=== PATIENT | female | born 1945 | race Caucasian/White ===

== ENCOUNTER 2020-08-24 09:35 | Day surgery (SDC) | payer MEDICARE, SELFPAY ==
--- NOTE | 2020-08-22 08:51 | EKG12_ITS ---
Test Reason : PREOP Blood Pressure : / mmHG Vent. Rate : 068 BPM Atrial Rate : 068 BPM P-R Int : 192 ms QRS Dur : 072 ms QT Int : 382 ms P-R-T Axes : -02 -09 024 degrees QTc Int : 406 ms Normal sinus rhythm Anterolateral infarct , age undetermined Abnormal ECG Confirmed by ELAINE PATTEN, MILTON ([id number]), video editor OLIVIA BELL ([id number]) on 08/23/2020 8:46:51 AM Referred By: Ovi Varghese Confirmed By:KARLIE HENRY MD
[2020-08-22 09:57] LABS: Hematocrit 40.4 % (37-47); Hemoglobin 12.7 g/dL (12.0-15.0); Mean Corp Hgb Conc 31.4 g/dL (32-36); Mean Corpuscular Hgb 29.5 pg (27.0-32.0); Mean Corpuscular Volume 93.7 fL (81-99); Mean Platelet Vol. 11.3 fl (6.2-12.0); Platelet Count 232 K/mm3 (150-450); RBC Distribution Width CV 14.2 % (11.6-14.6); RBC Distribution Width SD 49.5 fl (35.1-43.9); Red Blood Count 4.31 M/mm3 (4.2-5.4); White Blood Count 6.8 K/mm3 (4.4-11.0)
[2020-08-22 10:15] LABS: Anion Gap 3 (5-15); BUN 22 mg/dL (7-18); BUN/Creat Ratio 22.8 RATIO (10-20); Calcium,Total 10.2 mg/dL (8.5-10.1); Chloride 105 mmol/L (98-107); Creatinine, Serum 0.96 mg/dL (0.55-1.02); EST Glomerular Filtration Rate 60 mL/min (>60); Est Glom Filt Rate - Afr Amer 73 mL/min (>60); Glucose 82 mg/dL (74-106); Potassium 3.6 mmol/L (3.5-5.1); Sodium Level 139 mmol/L (136-145)
[2020-08-24] VITALS (7 sets, daily range): BP systolic 140–177; BP diastolic 80–105; PULSE 57–65; RESP 16–18; TEMP 35.8–36.6; O2SAT 96–100; BMI 32.1
[2020-08-24] MEDS: Lactated Ringers 1,000 ML 100 ML IV (10:25)
--- NOTE | 2020-08-24 10:35 | PCM.HP.STD ---
Problem List (1) Stress incontinence Status: Acute History of Present Illness Date of Admission: 08/24/20 Chief Complaint: Stress incontinence The patient is a 74 year old female with a history of stress incontinence she had a sling placed several years ago it initially worked really well but now she has recurrent stress incontinence we did urodynamic studies that demonstrated no urge incontinence and on exam plus on history she has stress incontinence when we filled her bladder up with water understanding cough she had stress incontinence and she reports leakage with stress activity like coughing jumping activity walking. So we will plan to place a second sling to help tighten up the urethra to hopefully reduce her stress incontinence she understands that it may not be helpful and she understands no guarantees of results. Past Medical History Allergies No Known Allergies Allergy (Verified 08/24/20 09:39) Home Medications: Ambulatory Orders Medication Instructions Recorded Atorvastatin Calcium [Lipitor] 10 mg PO QHS 06/12/13 Cetirizine HCl [Zyrtec] 10 mg PO DAILY 06/12/13 Fluticasone 0.05% [Flonase Nasal 2 sprays NASAL BID 06/12/13 [place]] Lansoprazole [Prevacid] 30 mg PO DAILY 06/12/13 Montelukast [Singulair] 10 mg PO DAILY 06/12/13 Albuterol IH (ProAir) [Proair Hfa 1 - 2 puff INHALATION Q4H PRN PRN 08/19/20 (SP)Vent Pts] Budesonide/Formoterol 160/4.5 2 puff INHALATION BID 08/19/20 [Symbicort 160/4.5 Mcg Inhaler (SP)] Clonidine HCl 0.3 mg PO QHS 08/19/20 Clonidine HCl 0.5 tablet PO DAILY 08/19/20 Hydrochlorothiazide [Hctz] 25 mg PO DAILY 08/19/20 Labetalol [Trandate] 100 mg PO BID 08/19/20 Sertraline HCl [Zoloft] 100 mg PO DAILY 08/19/20 Surgical History: - - Past surgical history includes hernia repair in 2009, tubal ligation 1970, cataract 2009. 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 Smoking Status: Never smoker Tobacco Use: Non-smoker Review of Systems Constitutional: Denies: Chills, Fever, Weight Change HEENT: Denies: Head Aches, Sinus Congestion, Sinus Drainage Cardiovascular: Denies: Chest Pain, Palpitations Respiratory: Denies: Cough, Shortness of breath at rest, Sputum production Gastrointestinal: Denies: Abdominal Pain, Nausea, Vomiting Genitourinary: Denies: Dysuria Musculoskeletal: Denies: Joint Pain, Joint Tenderness Skin: Denies: Rash, Wounds Neurological: Denies: Numbness, Tingling, Focal weakness Psychiatric: Denies: Anxiety, Depression, Homicidal Ideations, Suicidal Ideations Hematologic/ Lymphatic: Denies: Easy Bruising, Easy Bleeding VTE Information - Inpt Only VTE Present on Admission: No - Physical Exam Vitals/I&O's: Vital Signs Temp Pulse Resp BP Pulse Ox 97 F L 58 L 16 174/93 H 100 08/24/20 09:58 08/24/20 09:58 08/24/20 09:58 08/24/20 09:58 08/24/20 09:58 Oxygen Delivery Method Room Air Weight: 92.9 kg Body Mass Index (BMI) 32.1 General: Alert, Oriented x3, Cooperative HEENT: Atraumatic, PERRLA, EOMI, Normocephalic Neck: Supple, No JVD, Negative Carotid Bruits Lungs: Clear to auscultation, Normal air movement Cardiovascular: Regular rate, No murmurs Abdomen: Bowel Sounds Present, Soft, Non Tender Extremities: No edema, Capillary Refill Less than 3 Seconds Skin: No rashes, No breakdown Musculoskeletal: No Tenderness to Palpation of Joints or Extremities Neurological: Cranial nerves II-XII grossly intact Psych/Mental Status: Normal Affect, Appropriate Current Medications Cefazolin Sodium 2 gm/ Sodium (Chloride) 110 mls @ 150 mls/hr IV PREOP ONE Stop: 08/24/20 12:03 Lactated Ringer's () 1,000 mls @ 100 mls/hr IV .Q10H INOCENCIA Last Admin: 08/24/20 10:25 Dose: 100 mls/hr Documented by: Assessment/Plan All Active Problems Stress incontinence (Acute) 74-year-old female plan to place a second sling for stress incontinence
--- NOTE | 2020-08-24 10:39 | DCINST_ITS ---
Discharge Diet: Light diet - advance as tolerated Discharge Activity: May not drive while taking narcotic pain medications. Instructions: Stress Urinary Incontinence: Having Midurethral Sling Surgery Allergies/Adverse Reactions: Allergies No Known Allergies Allergy (Verified 08/24/20 09:39) Medications to take at Discharge Atorvastatin Calcium [Lipitor] 10 mg PO QHS 06/12/13 Cetirizine HCl [Zyrtec] 10 mg PO DAILY 06/12/13 Fluticasone 0.05% [Flonase Nasal [place]] 2 sprays NASAL BID 06/12/13 Lansoprazole [Prevacid] 30 mg PO DAILY 06/12/13 Montelukast [Singulair] 10 mg PO DAILY 06/12/13 Albuterol IH (ProAir) [Proair Hfa (SP)Vent Pts] 1 - 2 puff INHALATION Q4H PRN PRN 08/19/20 Budesonide/Formoterol 160/4.5 [Symbicort 160/4.5 Mcg Inhaler (SP)] 2 puff INHALATION BID 08/19/20 Clonidine HCl 0.3 mg PO QHS 08/19/20 Clonidine HCl 0.5 tablet PO DAILY 08/19/20 Hydrochlorothiazide [Hctz] 25 mg PO DAILY 08/19/20 Labetalol [Trandate] 100 mg PO BID 08/19/20 Sertraline HCl [Zoloft] 100 mg PO DAILY 08/19/20 Orders to be completed after discharge: 12 Lead EKG [CVS] Time Frame: 08/22/20, Facility: [facility], Location: Cardiovascular Services Primary Care Physician: Care Physician,No Primary [Primary Care Provider] - Test Results: Test results from this visit will be discussed in further detail at your follow- up appointment, if applicable. Please Follow Up With: Ovi Varghese MD When: in 2 weeks, please call to make an appointment.
[2020-08-24] MEDS: Cefazolin 2 GM in 0.9% Normal Saline 100 ML IV (10:48)
[2020-08-24] MEDS: Lidocaine 1% /Epi 1:100 (20ml) 20 ML Vial (11:00)
--- NOTE | 2020-08-24 11:33 | OP.PCM_ITS ---
Problem List (1) Stress incontinence Status: Acute Report of Operation Date of Procedure: 08/24/20 Pre-Operative Diagnosis: Stress incontinence recurrent Post-Operative Diagnosis: Same Surgery/Procedure Performed:: Placement of a tension-free, vaginal sling Description of Surgical Findings:: Patient presents today for placement of a tension-free vaginal sling, she has a diagnosis of recurrent stress incontinence after a prior sling and has been evaluated in the preoperative setting. We discussed how the procedure will be done what to expect afterwards. She understands is possible she may need a catheter in the short-term. We discussed the risk of bleeding and also the possibility of infection with the placement of the sling. We discussed the fact that we can be using artificial mesh and that there is a small risk of infection, erosion into the urethra, vaginal area, bladder and a small risk that she may require surgery down the road to address any problems or erosions with the mesh in the long-term. She was also given no guarantees as to how well the sling would work and that her incontinence may not improved to her satisfaction. After reviewing this with the patient she agreed to proceed with the placement of the sling. Patient was taken back to the operating room, after smooth induction of general anesthesia she was placed in dorsolithotomy position. She underwent vaginal prep and was placed in dorsolithotomy position. A Freeman catheter was placed into the bladder and Inflated with 10 cc of sterile water into the balloon. I then marked out the bladder neck with a marking pen and marked out the mid urethra. The urethra was then infiltrated with lidocaine with 1:1000 epinephrine, after the injecting into the urethra then a midline incision was made in the urethra long enough to create a space for the trocar. I then used curved Metzenbaum scissors to dissect periurethrally up to the right side underneath the pubic bone, and then dissect periurethrally up to the left side underneath the pubic bone creating the tunnel for the sling. I then went up to the pubic bone and the patient was in Trendelenburg position and marked two incision site 2 cm from the midline on the left and right side. I then infiltrated the skin with lidocaine and then made a small stab incision in the right and left side exactly where the cast were above the pubic bone. Making sure that the bladder was completely empty I then guided the suprpubid desera trocar top-down on the right side first coming behind the pubic bone following it into the incision below the urethra. Once the suprapubic trocar was passed then I deflated the balloon and remove the Freeman catheter went into the bladder with a 70 degree lens and inspected the bladder and there was no perforation damage or injury to the bladder, no damage to the ureter, and no damage to the urethra. I then hooked the end of the desara sling to the suprapubic trocar and advanced it up through the tunnel and then put a snap on the end of the sling. I then went to the other side to pass the sling. The 18fr Freeman catheter was replaced into the bladder with 10 cc of water into the balloon and then drained the bladder completely and then I guided the suprapubic trocar down on the left side from top down behind the pubic bone into the incision below the urethra. I then deflated the balloon removed the Freeman catheter and performed a cystoscopy again and inspected the bladder with a 70 degree there was no injury to the bladder, the ureter, or the urethra on inspection. I then grabbed the other end of the sling and using the suprapubic trocar pulled the sling on the other side and put a snap on the sling end. I then put a snap in the middle the sling and then both ends of the slings were then pulled up and then the sling was tensioned below the urethra ensuring that the sling was flat that there was no kinking or pulling or twisting and laid nicely tension-free underneath the urethra. I did have to put the sling in with more tension than usual given that this was a recurrent case. Then both ends of the slings were cut and then the plastic sheath covering the mesh was removed deploying the sling, the excess mesh was then trimmed from the suprapubic area and the mesh ends were dunked down deep in the subcutaneous fat. The Freeman catheter was removed and we checked the bladder with a 30 and 70 degree lens making sure there is no injury to the urethra, bladder and no perforation with a mesh. The urine was nice and clear with no blood. I then closed the incision below the urethra with a running 3-0 Vicryl and thenclosed the 2 suprapubic incisions with interrupted 4- 0 Monocryl. The bladder was left empty anesthetic was reversed and she was taken back to the PACU and will undergo a voiding trial before discharge. Type of Anesthesia:: General Drains: none - Admit VTE Documentation VTE Present on Admission: No VTE Mechan Device Prophylaxis: SCD's
== END 2020-08-24 14:10 | disposition home or self-care (01) ==
LOC: SDC 09:38 → AC 09:38
PROVIDERS: Anesthesiology; Referring Provider Urology; Visit Provider Urology
PROC: 0TJB8ZZ Inspection of Bladder, Via Natural or Artificial Opening Endoscopic (ICD-10-PCS; CPT 57288; principal; 2020-08-24 11:10)
DX: N39.46 Mixed incontinence (principal); I10 Essential (primary) hypertension; E78.00 Pure hypercholesterolemia, unspecified; K21.9 Gastro-esophageal reflux disease without esophagitis; F32.9 Major depressive disorder, single episode, unspecified; Z79.51 Long term (current) use of inhaled steroids; Z79.899 Other long term (current) drug therapy; Z78.0 Asymptomatic menopausal state
CPT/HCPCS: 00860; 57288; 36415; 80048; 85027; 93005; J7120; C1771; J2405

== ENCOUNTER → 2020-08-31 12:10 | Outpatient (CLI) | payer MEDICARE, SELFPAY ==
[2020-08-24 09:58] VITALS: BMI 32.1
== END ==
PROVIDERS: Referring Provider Nurse Practitioner Adult Health; Visit Provider Nurse Practitioner Adult Health
DX: N39.3 Stress incontinence (female) (male) (principal)
CPT/HCPCS: 87086

== ENCOUNTER 2020-09-07 11:23 | Day surgery (SDC) | payer MEDICARE, SELFPAY ==
[2020-08-24 09:58] VITALS: BMI 32.1
--- NOTE | 2020-09-05 16:13 | NURSING ---
pt reports she had second pfizer vaccine on 07/26/20.
[2020-09-07] VITALS (7 sets, daily range): BP systolic 98–166; BP diastolic 82–98; PULSE 65–78; RESP 16–18; TEMP 35.7–36.9; O2SAT 93–100; BMI 31.7
[2020-09-07] MEDS: Lactated Ringers 1,000 ML 100 ML IV ×2 (12:09→13:01)
--- NOTE | 2020-09-07 14:52 | PCM.HP.STD ---
HPI - General HPI Narrative MARINE BANGURA, is a 75 F who presents for a release of a tension-free vaginal sling, last week she underwent a placement of a sling for recurrent stress incontinence she had a prior sling placement in 3 years ago but had recurrent stress incontinence the sling was placed a little bit tighter because she still had significant leakage while we are putting the sling in at the time of the procedure however unfortunately after the surgery she is not been able to urinate she is required a catheter so today were to do a releasing incision of the sling. She understands is possible because of this her leakage may not be satisfactory under control. [facility] Medical History (Updated 09/05/20 @ 16:18 by Tsering Villegas) Arthritis Asthma Chronic indwelling Freeman catheter Depression Dyspnea Edema GERD (gastroesophageal reflux disease) Hypercholesteremia Hypertension Leg cramps Non-smoker Osteoporosis Wears glasses Home Medications Zyrtec 10 mg PO DAILY 06/12/13 [History Last Taken Unknown] atorvastatin 10 mg PO QHS 06/12/13 [History Last Taken Unknown] fluticasone propionate 2 sprays NASAL BID 06/12/13 [History Last Taken 09/07/20] lansoprazole [Prevacid] 30 mg PO DAILY 06/12/13 [History Last Taken 08/24/20 05:30] montelukast 10 mg PO DAILY 06/12/13 [History Last Taken 04/05/14 06:30 10 MG] albuterol sulfate 1 - 2 puff INHALATION Q4H PRN PRN 08/19/20 [History Last Taken 09/07/20] budesonide-formoterol 2 puff INHALATION BID 08/19/20 [History Last Taken 09/07/20] clonidine HCl 0.3 mg PO QHS 08/19/20 [History Last Taken Unknown] clonidine HCl 0.5 tablet PO DAILY 08/19/20 [History Last Taken 09/07/20] hydrochlorothiazide 25 mg PO DAILY 08/19/20 [History Last Taken Unknown] labetalol 100 mg PO BID 08/19/20 [History Last Taken 09/07/20] sertraline 100 mg PO DAILY 08/19/20 [History Last Taken Unknown] ibuprofen 600 mg PO Q4H PRN PRN #20 tablet 08/24/20 [Rx Last Taken Unknown] ciprofloxacin HCl [Cipro] 500 mg PO BID #6 tab 05/05/21 [Rx Last Taken Unknown] oxycodone-acetaminophen [Endocet] 1 tab PO Q6H PRN 7 Days #10 tab 09/07/20 [Rx Last Taken Unknown] Allergy/AdvReac Type Severity Reaction Status Date / Time No Known Allergies Allergy Verified 09/05/20 15:55 Surgical History (Updated 09/05/20 @ 16:11 by Tsering Villegas) History of bilateral cataract extraction History of bilateral knee replacement History of inguinal hernia repair History of pubovaginal sling History of tubal ligation Social History Smoking Status: Never smoker Vital Signs Vital Signs Vital Signs: 09/07/20 11:51 Temperature 98.5 F Temperature Source Temporal Pulse Rate 65 Respiratory Rate 18 Respiratory Pattern Normal Blood Pressure 166/98 H Blood Pressure Mean 120 Blood Pressure Source Monitor Blood Pressure Position Semi-Fowlers Blood Pressure Location Right Arm Pulse Ox 100 Oxygen Delivery Method Room Air Physical Exam Const alert and oriented x3 General Appearance: cooperative HEENT normocephalic, head/scalp atraumatic, EAC's normal and TM's normal bilaterally Eyes PERRL and EOMs intact bilaterally Pupil: sluggish Neck no lymphadenopathy, supple and no JVD General: trachea midline Lymph Lymphatic: no lymphadenopathy noted, lymphedema and lymphadenopathy Resp normal respiratory effort, normal air movement and clear to auscultation bilaterally Cardio regular rate, regular rhythm and peripheral pulses 2+ throughout GI soft to palpation, non-tender and non-distended Extremity normal capillary refill and no clubbing, cyanosis or edema General Extremity: no tenderness to palpation of joints or extremities Skin no rashes or lesions noted General Skin Exam: turgor normal Lesions: no lesions Rashes: no rashes Neuro CN's II-XII intact bilaterally Speech: speech normal Motor Exam: strength 5/5 throughout; Negative for general weakness Psych thought process normal, cooperative and affect normal Appearance: appropriate Assessment & Plan Assessment/Plan (1) Stress incontinence: PLAN: Female with sling status post placement of sling unable to urinate after the procedure began to proceed with a release of a tension-free vaginal sling.
--- NOTE | 2020-09-07 14:54 | PCM.DC ---
Discharge Instructions Diet Discharge Diet: No restrictions Activity Discharge Activity: May not drive while taking narcotic pain medications. (for 3 days.) May shower in (days): 1 May resume sexual activity in: 6-8 weeks Dressing / Incision Call your doctor if your incision/area has: Continuous Slow Oozing, Increased Pain/ Swelling, Increased Redness and Foul Smelling Discharge Call your doctor if you observe: Fever of 101 or Higher, Numbness or Tingling, Shortness of breath, Dizziness, Calf discomfort and Uncontrolled pain Cleanse incision/area with: Keep Dressing Clean & Dry Discharge Plan Admission Primary Reason for Your Visit: Release of sling Attending Provider: Ovi Varghese Primary Care Provider: Krista Brar NP Instructions Patient Instructions: Stress Urinary Incontinence: Having Midurethral Sling Surgery Discharge Orders/Prescriptions Prescriptions: New ciprofloxacin HCl [Cipro] 500 mg tablet 500 mg PO BID Qty: 6 RF: 0 oxycodone-acetaminophen [Endocet] 5-325 mg tablet 1 tab PO Q6H PRN (Reason: pain) 7 Days Qty: 10 RF: 0 Continued atorvastatin 10 MG tablet 10 mg PO QHS RF: 0 lansoprazole [Prevacid] 30 MG capsule 30 mg PO DAILY RF: 0 montelukast 10 MG tablet 10 mg PO DAILY RF: 0 fluticasone propionate 1 SPRAY spray,suspension 2 sprays NASAL BID RF: 0 Zyrtec 10 MG capsule 10 mg PO DAILY RF: 0 clonidine HCl 0.3 MG tablet 0.5 tablet PO DAILY RF: 0 clonidine HCl 0.3 MG tablet 0.3 mg PO QHS RF: 0 sertraline 100 MG tablet 100 mg PO DAILY RF: 0 hydrochlorothiazide 25 MG tablet 25 mg PO DAILY RF: 0 labetalol 100 MG tablet 100 mg PO BID RF: 0 albuterol sulfate 1 PUFF inhaler 1 - 2 puff INHALATION Q4H PRN PRN (Reason: Sob &/Or Wheezing) RF: 0 budesonide-formoterol 1 INHALER inhaler 2 puff INHALATION BID RF: 0 ibuprofen 600 MG tablet 600 mg PO Q4H PRN PRN (Reason: Pain 1-10 Or Fever) Qty: 20 RF: 0 Referrals: Ovi Varghese MD [STAFF PHYSICIAN] - Krista Brar NP, HOSPITAL PLAN ADMINISTRATOR-C [Primary Care Provider] - Disposition Discharge Orders: Discharge Patient (Routine); Ordered 09/07/20 Ordered By: Dr. Ovi Varghese
[2020-09-07] MEDS: Cefazolin 2 GM in 0.9% Normal Saline 100 ML IV (15:00)
[2020-09-07] MEDS: Lubricating Jelly 60 GM Tube 30 GM TOPICAL (15:20)
[2020-09-07] MEDS: Bupiv/Epi 0.25% 30 ML Vial (15:20)
--- NOTE | 2020-09-07 15:34 | PCM.OPRPT ---
Problems Associated Problem List Diagnoses (1) Stress incontinence: Report of Operation Date of Procedure: 09/07/20 Pre-Operative Diagnosis: Incision of sling Post-Operative Diagnosis: Same Surgery/Procedure Performed:: Incision of sling Description of Surgical Findings:: Patient was taken back to the operating room at the smooth induction of general anesthesia she was placed in dorsolithotomy position in high lithotomy, the urethra was injected with epinephrine with lidocaine I then opened up the old incision site below the urethra about 1-1/2 cm in size dissected down I found the original sling put in 2 years ago but this was well scarred and this was left alone and I found the recent sling that was put in went across the entire sling with a hemostat and then cut the sling in the midline and then the sling retracted and released. I then closed up the incision in the midline patient is bladder was drained with a straight catheter and she is extubated taken back to PACU good condition for voiding trial. Type of Anesthesia: General Drains: none Admit VTE Documentation VTE Present on Admission: No VTE Mechan Device Prophylaxis: SCD's
--- NOTE | 2020-09-07 18:25 | SUR.PHASEII ---
VOIDED ADEQUATE AMOUNT WHICH WAS PINK/RED, PATIENT REPORTS FEELING THOUGH SHE EMPTIED HER BLADDER. POST-VOID BLADDER SCAN FOR 48 ML. ENCOURAGED INCREASED PO FLUID INTAKE. INSTRUCTED TO CALL DR COLLAZO IF UNABLE TO VOID WITHIN 6-8 HOURS. PATIENT & VERBALIZE UNDERSTANDING AND AGREEABLE. BOTH STATE DESIRE TO D/C HOME.
== END 2020-09-07 18:27 ==
LOC: SDC 11:24 → AC 11:24
PROVIDERS: PCP Nurse Practitioner Family; Referring Provider Urology; Visit Provider Urology
PROC: (CPT 57287; principal; 2020-09-07 13:15)
DX: N39.490 Overflow incontinence (principal); N39.46 Mixed incontinence; R35.0 Frequency of micturition; R35.1 Nocturia; I10 Essential (primary) hypertension; E78.00 Pure hypercholesterolemia, unspecified; M81.0 Age-related osteoporosis without current pathological fracture; J45.909 Unspecified asthma, uncomplicated; M19.90 Unspecified osteoarthritis, unspecified site; K21.9 Gastro-esophageal reflux disease without esophagitis; F32.9 Major depressive disorder, single episode, unspecified; Z79.51 Long term (current) use of inhaled steroids; Z79.899 Other long term (current) drug therapy; Z96.653 Presence of artificial knee joint, bilateral
CPT/HCPCS: 00860; 57287; J7120; J2405

== ENCOUNTER → 2023-07-08 | Outpatient (CLI) | payer MEDICARE, SELFPAY ==
--- NOTE | 2023-07-08 10:05 | RAD_ITS ---
STUDY: X-RAY - SKULL REASON FOR EXAM: Female, 77 years old. Neoplasm of uncertain behavior of skin. Lumps on the upper part of for head, near the hairline. TECHNIQUE: 5 views of the skull were obtained. COMPARISON: None. FINDINGS: There appear to be 2 faintly radiodense convexities along the superior surface of the right frontal bone, best depicted on the Archer and lateral views. Intact osseous calvarium. There is no demonstrated calvarial fracture or active periostitis. Normal visualized facial bones. Normal visualized paranasal sinuses. RAD/Skull min 4 Views IMPRESSION: 2 faintly radiodense convexities along the superior surface of the right frontal bone, nonspecific. No demonstrated calvarial fracture or active periostitis. Dedicated ultrasound or cross-sectional CT or MRI could be performed for further evaluation to distinguish between bone based or soft tissue based. Electronically Signed: Nazario Sahu MD at 11:18 EST ,
--- OUTSIDE RECORDS SUMMARY | 2023-07-08 10:29 | XMS RPT_ITS | CCD ---
Author Name Unknown Address [id number] [place] [address] Organization [facility] Care Team Providers Care Drafter [employer] Name Role Phone BOLOGNA, JULIAN A Unavailable Unavailable IMCA Unavailable Unavailable [facility]CA Unavailable Unavailable BERNHART, JIM Unavailable Unavailable [facility]CA Unavailable Unavailable [facility] Unavailable Unavailable BERNHART, JIM Unavailable Unavailable IMCA Unavailable Unavailable BOLOGNA, JULIAN A Unavailable Unavailable BERNHART, JIM Unavailable Unavailable IMCA Unavailable Unavailable BOLOGNA, JULIAN A Unavailable Unavailable IMCA Unavailable Unavailable BOLOGNA, JULIAN A Unavailable Unavailable [facility]CA Unavailable Unavailable [facility] Unavailable Unavailable BOLOGNA, JULIAN A Unavailable Unavailable BOLOGNA, JULIAN A Unavailable Unavailable IMCA Unavailable Unavailable BOLOGNA, JULIAN A Unavailable Unavailable BERNHART, JIM Unavailable Unavailable [facility]CA Unavailable Unavailable [facility]CA Unavailable Unavailable BERNHART, JIM (SANITIZER) Unavailable Unavaila ble BERNHART, JIM (SANITIZER) Unavailable Unavaila ble BOLOGNA, JULIAN A Unavailable Unavailable BOLOGNA, JULIAN A Unavailable Unavailable BOLOGNA, JULIAN A Unavailable Unavailable BOLOGNA, JULIAN A Unavailable Unavailable BOLOGNA, JULIAN A Unavailable Unavailable BOLOGNA, JULIAN A Unavailable Unavailable JI ELIZABETH Unavailable Unavailable KWANHEAVEN TERANIDI M Admitting Unavailable MARILYNN BEGUM MILLER ROD MILL Consulting Unavailab le NILDA BOWENS M Primary Care Unavailable NILDA BOWENS M Attending Unavailable PROVIDER, UNKNOWN Consulting Unavailable PROVIDER, UNKNOWN Consulting Unavailable MARILYNN BEGUM MILLER ROD MILL Consulting Unavailab le HEAVEN BOWENSIDI M Admitting Unavailable KWAN, NILDA M Primary Care Unavailable KWANHEAVEN TERANIDI M Attending Unavailable PROVIDER, UNKNOWN Consulting Unavailable PROVIDER, UNKNOWN Consulting Unavailable KWAN, NILDA M Admitting Unavailable MARILYNN BEGUM NP Consulting Unavailab NILDA Arroyo Primary Care Unavailable NILDA BOWENS Attending Unavailable PROVIDER, UNKNOWN Consulting Unavailable PROVIDER, UNKNOWN Consulting Unavailable MARILYNN REYNOSO Unavailable [phone] [employer]ED[facility], SPECTRUM Unavailable Unavailjena PAULSON Unavailable Unavailable JOSSE PATTEN, HUDSON Menjivar Unavailable SABINA PATTEN, EDUIN Unavailable SVITLANA PATTEN, NANO Person Unavailable KING EARLINE, DYLAN Tapia Unavailable JARVIS PATTEN, JEANETTE Unavailable Ovi Varghese Unavailable Unavailable LORRIE PATTEN, Naya BLEVINS Unavailable Kanika BARKER, Brenda Unavailable Unavailable CAMERON PATTEN, MELVNI Morris Unavailable LISA MCGEE Unavailable Unavailable TORI SHANE Unavailable Unavailable CLARA PATTEN, JI Muro Unavailable Arianna Camacho Unavailable Unavailable LENA RN, LINDSAY Unavailable Unavailable SOLA RN, LYN Unavailable Unavaila nora Carrillo RN, Agueda Unavailable Unavailab Yuko Sierra Unavailable Unavailable TYE LOAIZA Unavailable Unavailable Kisha Loaiza Unavailable Unavailable Ike LOAIZA MD Unavailable [facility] [employer], Daily Unavailable Unavailable ISHMAEL GALICAI Unavailable Unavailable Maile, Rosita Unavailable Unavailable AMY, BERENICE Unavailable Unavailable Kaylynn العلي Unavailable Unavailable Akil العلي Unavailable Unavailable Ginny RN, Cely Unavailable Unavaila NOLVIA Saldivar Unavailable Unavailable Brisa BARKER, Marlena Unavailable Unavailable Tana Mchugh Unavailable Unavailable Angella Partida Unavailable Unavailable JONNIE MARMOLEJO Unavailable Unavailable Unavailable Unavailable Allergies Allergy Classification Reported Allergen(s) Allergy Type Date of Onset Reaction(s) Facility (2 sources) omeprazole; Translations: [OMEPRAZOLE] Drug Allergy 06-12-2017 [facility] Repository (1 source) Omeprazole Drug Allergy [facility] Repository (2 sources) Omeprazole Drug Allergy 06-10-2023 [facility]. Medications Current Medications Medication Drug Class(es) Dates Sig (Normalized) Sig (Original) atorvastatin 10 mg oral tablet (2 sources) HMG-CoA Reductase Inhibitor Start: 12-10-2022 120 actuat budesonide 0.16 mg/actuat / formoterol fumarate 0.0045 mg/actuat metered dose inhaler (4 sources) Corticosteroid, beta2-Adrenergic Agonist Start: 10-23-2021 cloNIDine hydrochloride 0.3 mg oral tablet (2 sources) Central alpha-2 Adrenergic Agonist Start: 12-10-2022 fluticasone propionate 0.05 mg/actuat metered dose nasal spray (4 sources) Corticosteroid Start: 12-10-2022 Completed/Discontinued Medications Medication Drug Class(es) Dates Sig (Normalized) Sig (Original) [id number] 200 actuat albuterol 0.09 mg/actuat metered dose inhaler (6 sources) beta2-Adrenergic Agonist Start: 12-26-2020 End: 12-10-2022 Problems Problem Classification Problem Date Documented Da te Episodic/Chronic Abdominal hernia (6 sources) Hernia of abdominal cavity; Translations: [Other specified abdominal hernia without obstruction or gangrene] 06-10-2023 Episodic Acute bronchitis (8 sources) Acute bronchitis; Translations: [Acute bronchitis] 12-26-2012 Episodic Administrative/social admission (20 sources) Patient encounter status; Translations: [Counseling, unspecified] 10-31-2018 Episodic Allergic reactions (4 sources) Atopic dermatitis; Translations: [Atopic dermatitis, unspecified] 02-13-2013 Chronic Asthma (20 sources) Mild persistent asthma; Translations: [Mild persistent asthma, uncomplicated] 06-10-2023 Chronic Diseases of mouth; excluding dental (4 sources) Xerostomia; Translations: [Dry mouth, unspecified] 06-10-2023 Episodic Disorders of lipid metabolism (20 sources) Elevated fasting lipid profile; Translations: [Hyperlipidemia, unspecified] 06-10-2023 Chronic Esophageal disorders (20 sources) Gastroesophageal reflux disease; Translations: [Gastro-esophageal reflux disease without esophagitis] 06-10-2023 Chronic Essential hypertension (20 sources) Benign hypertension; Translations: [Essential (primary) hypertension] 06-10-2023 Chronic Fluid and electrolyte disorders (6 sources) Hypokalemia; Translations: [Hypokalemia] 10-15-2014 Episodic Genitourinary symptoms and ill-defined conditions (7 sources) Urge incontinence; Translations: [Genuine stress incontinence] Onset: 8 06-10-2023 Chronic Genitourinary symptoms and ill-defined conditions (2 sources) Stress incontinence (female) (male); Translations: [Stress incontinence (female) (male)] Onset: Hemorrhoids (6 sources) Hemorrhoids; Translations: [Unspecified hemorrhoids] 06-10-2023 Episodic Immunizations and screening for infectious disease (20 sources) Needs influenza immunization; Translations: [Encounter for immunization] 06-10-2023 Episodic Menopausal disorders (7 sources) Postmenopausal atrophic vaginitis; Translations: [Menopausal flushing] Onset: 8 01-22-2014 Chronic Mood disorders (20 sources) Acute depression; Translations: [Major depressive affective disorder, single episode, unspecified] 06-10-2023 Chronic Mycoses (10 sources) Candidiasis of skin; Translations: [Candidiasis of skin and nail] 06-10-2023 Episodic Osteoarthritis (10 sources) Primary localized osteoarthrosis of pelvic region; Translations: [Unilateral primary osteoarthritis, right hip] 06-10-2023 Chronic Other and unspecified benign neoplasm (4 sources) Tubular adenoma ; Translations: [Benign neoplasm, unspecified site] 01-11-2012 Episodic Other connective tissue disease (4 sources) Pain in buttock; Translations: [Myalgia, other site] 06-06-2018 Episodic Other connective tissue disease (2 sources) Pain of left calf; Translations: [Pain in left lower leg] 09-05-2020 Episodic Other connective tissue disease (2 sources) Right rotator cuff syndrome; Translations: [Unspecified rotator cuff tear or rupture of right shoulder, not specified as traumatic] 04-05-2017 Episodic Other connective tissue disease (2 sources) Swelling of lower limb; Translations: [Other specified soft tissue disorders] 10-15-2014 Episodic Other connective tissue disease (2 sources) Trochanteric bursitis; Translations: [Trochanteric bursitis, unspecified hip] 09-25-2013 Episodic Other diseases of bladder and urethra (1 source) Hypermobility of urethra; Translations: [Hypermobility of urethra] Onset: 8 Episodic Other ear and sense organ disorders (4 sources) Hearing loss of left ear; Translations: [Impacted cerumen, left ear] 06-10-2023 Episodic Other ear and sense organ disorders (2 sources) Bilateral earache; Translations: [Otalgia, bilateral] 08-06-2019 Episodic Other endocrine disorders (4 sources) Hyperparathyroidism; Translations: [Hyperparathyroidism, unspecified] 06-10-2023 Chronic Other endocrine disorders (6 sources) Hormone increase; Translations: [Endocrine disorder, unspecified] 06-10-2023 Episodic Other gastrointestinal disorders (2 sources) Constipation; Translations: [Constipation, unspecified] 04-06-2011 Episodic Other injuries and conditions due to external causes (2 sources) At risk for falls ; Translations: [History of falling] 08-31-2016 Episodic Other liver diseases (2 sources) Increased creatine kinase level; Translations: [Abnormal levels of other serum enzymes] 10-06-2013 Episodic Other nutritional; endocrine; and metabolic disorders (10 sources) Hypercalcemia; Translations: [Hypercalcemia] 06-10-2023 Chronic Other screening for suspected conditions (not mental disorders or infectious disease) (20 sources) Breast screening, unspecified; Translations: [Screening for diabetes mellitus] 12-26-2012 Episodic Other skin disorders (6 sources) Skin lesion; Translations: [Disorder of the skin and subcutaneous tissue, unspecified] 06-10-2023 Episodic Other skin disorders (4 sources) Seborrheic keratosis; Translations: [Other seborrheic keratosis] 06-10-2023 Episodic Other skin disorders (4 sources) Rash and other nonspecific skin eruption 03-22-2014 Episodic Other skin disorders (4 sources) Inflamed seborrheic keratosis; Translations: [Inflamed seborrheic keratosis] 01-29-2014 Episodic Other skin disorders (2 sources) Folliculitis; Translations: [Follicular disorder, unspecified] 01-26-2013 Episodic Other skin disorders (2 sources) Actinic keratosis; Translations: [Actinic keratosis] 04-21-2010 Episodic Other upper respiratory disease (16 sources) Allergic rhinitis due to pollen 06-10-2023 Chronic Other upper respiratory infections (8 sources) Sinusitis; Translations: [Chronic sinusitis, unspecified] 06-10-2023 Chronic Other upper respiratory infections (8 sources) Acute sinusitis, unspecified; Translations: [Acute upper respiratory infections of unspecified site] 12-26-2012 Episodic Pneumonia (except that caused by tuberculosis or sexually transmitted disease) (4 sources) Pneumonia; Translations: [Pneumonia, unspecified organism] 07-11-2010 Episodic Residual codes; unclassified (20 sources) Overweight; Translations: [Other specified conditions influencing health status] 06-10-2023 Episodic Retinal detachments; defects; vascular occlusion; and retinopathy (2 sources) Macular drusen ; 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, unspecified eye] 04-21-2010 Chronic Spondylosis; intervertebral disc disorders; other back problems (8 sources) Degeneration of lumbar intervertebral disc; Translations: [Other intervertebral disc degeneration, lumbar region] 06-10-2023 Chronic Spondylosis; intervertebral disc disorders; other back problems (14 sources) Sciatica; Translations: [Sciatica, right side] 06-06-2018 Episodic Sprains and strains (2 sources) Strain of muscle of lower limb; Translations: [Strain of unspecified muscles, fascia and tendons at thigh level, unspecified thigh, initial encounter] 09-25-2013 Episodic Unclassified (2 sources) Unknown / UNK(Unknown) Onset: 8 Unclassified (2 sources) 06-10-2023 Unclassified (2 sources) 06-10-2023 Unclassified (2 sources) 06-10-2023 Viral infection (4 sources) Viral disease; Translations: [Viral infection, unspecified] 12-28-2016 Episodic Results Test Name Value Interpretation Reference Range Facil ity Vital Signs Date Time Vital Sign Value Performing Clinician Faci lity 06-10-2023 09:07-0500 Body height 176.53 cm LYN CARRILLO RN [facility] [employer] [facility], ClasesD.; [facility] 06-10-2023 09:07-0500 Body mass index (BMI) [Ratio] 30.13 kg/m2 LYN CARRILLO RN [facility] [employer] [facility], Inc.; [facility] [employer] [facility], ClasesD. 06-10-2023 09:07-0500 Body surface area Derived from formula 2.11 m2 LYN CARRILLO RN [facility], ClasesD.; [facility]. 06-10-2023 09:07-0500 Body temperature 98.1 [degF] LYN CARRILLO RN [facility].; [facility]. 06-10-2023 09:07-0500 Body weight 93.9 kg LYN CARRILLO RN [facility].; [facility]. 06-10-2023 09:07-0500 Diastolic blood pressure 93 mm[Hg] LYN CARRILLO RN [facility].; [facility]. 06-10-2023 09:07-0500 Heart rate 67 /min LYN CARRILLO RN [facility], [facility].; [facility]. 06-10-2023 09:07-0500 Inhaled oxygen concentration 21 % LYN CARRILLO RN [facility].; [facility]. 06-10-2023 09:07-0500 SaO2% (BldA) [Mass fraction] 97 % LYN CARRILLO RN [facility].; [facility]. 06-10-2023 09:07-0500 Systolic blood pressure 156 mm[Hg] LYN CARRILLO RN [facility].; [facility]. 12-10-2022 09:05-0400 Body height 176.53 cm Daily [facility], [facility].; [facility]. 12-10-2022 09:05-0400 Body mass index (BMI) [Ratio] 29.26 kg/m2 Daily [facility], [facility].; [facility]. 12-10-2022 09:05-0400 Body surface area Derived from formula 2.08 m2 Daily [facility], Inc.; [facility], [facility] 12-10-2022 09:05-0400 Body weight 91.17 kg Daily [facility], [facility].; [facility], [facility] 12-10-2022 09:05-0400 Diastolic blood pressure 74 mm[Hg] Daily [facility], [facility], [facility] 12-10-2022 09:05-0400 Heart rate 72 /min Daily [facility], [facility], [facility] 12-10-2022 09:05-0400 Systolic blood pressure 113 mm[Hg] Daily [facility], [facility] 06-14-2022 08:54-0500 Body height 176.53 cm LYN CARRILLO RN [facility], [facility].; [facility], [facility] 06-14-2022 08:54-0500 Body mass index (BMI) [Ratio] 29.84 kg/m2 LYN CARRILLO RN [facility], [facility].; [facility], [facility] 06-14-2022 08:54-0500 Body surface area Derived from formula 2.1 m2 LYN CARRILLO RN [facility], [facility].; [facility], [facility]. 06-14-2022 08:54-0500 Body weight 92.99 kg LYN CARRILLO RN [facility], Inc.; [facility], [facility]. 06-14-2022 08:54-0500 Diastolic blood pressure 83 mm[Hg] LYN CARRILLO RN [facility], [facility] 06-14-2022 08:54-0500 Heart rate 69 /min LYN CARRILLO RN [facility], Inc[facility], [facility]. 06-14-2022 08:54-0500 Systolic blood pressure 130 mm[Hg] LYN CARRILLO RN [facility], [facility].; [facility], [facility] 12-21-2021 09:51-0400 Body height 176.53 cm [facility], [facility]. 12-21-2021 09:51-0400 Body mass index (BMI) [Ratio] 29.4 kg/m2 [facility], [facility].; [facility], [facility]. 12-21-2021 09:51-0400 Body surface area Derived from formula 2.09 m2 [facility], [facility].; [facility], [facility]. 12-21-2021 09:51-0400 Body weight 91.63 kg [facility] [employer] [facility], Inc.; [facility], [facility]. 12-21-2021 09:51-0400 Diastolic blood pressure 97 mm[Hg] [facility], [facility], [facility]. 12-21-2021 09:51-0400 Heart rate 61 /min [facility], Inc.; [facility], [facility]. 12-21-2021 09:51-0400 Systolic blood pressure 173 mm[Hg] [facility], [facility].; [facility], [facility] 06-22-2021 09:54-0500 Body height 176.53 cm LINDSAY PAREDES RN [facility], Inc.; [facility], Inc[facility] 06-22-2021 09:54-0500 Body mass index (BMI) [Ratio] 29.26 kg/m2 LINDSAY PAREDES RN [facility], Inc.; [facility], [facility]. 06-22-2021 09:54-0500 Body surface area Derived from formula 2.08 m2 LINDSAY GRATE LUCERO [facility], [facility].; [facility]. 06-22-2021 09:54-0500 Body weight 91.17 kg LINDSAY GRATE LUCERO [facility], [facility].; [facility], [facility]. 06-22-2021 09:54-0500 Diastolic blood pressure 75 mm[Hg] LINDSAY GRATE [facility], [facility].; [facility], [facility]. 06-22-2021 09:54-0500 Heart rate 72 /min LINDSAY GRATE [facility], [facility].; [facility]. 06-22-2021 09:54-0500 Inhaled oxygen concentration 21 % LINDSAY GRATE [facility], [facility].; [facility]. 06-22-2021 09:54-0500 SaO2% (BldA) [Mass fraction] 97 % LINDSAY GRATE [facility].; [facility], [facility]. 06-22-2021 09:54-0500 Systolic blood pressure 130 mm[Hg] LINDSAY GRATE [facility].; [facility], [facility]. 12-26-2020 09:09-0400 Body height 176.53 cm [facility], [facility].; [facility]. 12-26-2020 09:09-0400 Body mass index (BMI) [Ratio] 29.69 kg/m2 [facility], [facility].; [facility], [facility]. 12-26-2020 09:09-0400 Body surface area Derived from formula 2.09 m2 [facility], [facility].; [facility], [facility]. 12-26-2020 09:09-0400 Body weight 92.53 kg [facility], [facility].; [facility], [facility]. 12-26-2020 09:09-0400 Diastolic blood pressure 89 mm[Hg] [facility], [facility] 12-26-2020 09:09-0400 Heart rate 70 /min [facility], [facility], [facility] 12-26-2020 09:09-0400 Inhaled oxygen concentration 21 % [facility], [facility], [facility] 12-26-2020 09:09-0400 SaO2% (BldA) [Mass fraction] 94 % [facility], [facility].; [facility], [facility] 12-26-2020 09:09-0400 Systolic blood pressure 141 mm[Hg] [facility], [facility], [facility] 09-19-2020 15:12-0400 Body height 176.53 cm [facility], [facility] 09-19-2020 15:12-0400 Body mass index (BMI) [Ratio] 29.4 kg/m2 [facility], [facility].; [facility], [facility] 09-19-2020 15:12-0400 Body surface area Derived from formula 2.09 m2 [facility], [facility], [facility]. 09-19-2020 15:12-0400 Body weight 91.63 kg [facility], [facility], [facility] 09-19-2020 15:12-0400 Diastolic blood pressure 92 mm[Hg] [facility], [facility] 09-19-2020 15:12-0400 Heart rate 69 /min [facility], [facility], [facility]. 09-19-2020 15:12-0400 Systolic blood pressure 154 mm[Hg] BERENICETHUY BELTRANER [facility], Inc.; [facility], [facility]. 09-05-2020 11:39-0400 Body height 176.53 cm Kisha Menjivar [facility], Inc.; [facility], [facility] 09-05-2020 11:39-0400 Body mass index (BMI) [Ratio] 29.31 kg/m2 Kisha Menjivar [facility], Inc.; [facility], [facility]. 09-05-2020 11:39-0400 Body surface area Derived from formula 2.08 m2 Kisha Menjivar [facility], [facility].; [facility], [facility]. 09-05-2020 11:39-0400 Body weight 91.36 kg Kisha Menjivar [facility], Inc.; [facility], [facility]. 09-05-2020 11:39-0400 Diastolic blood pressure 78 mm[Hg] Kisha Menjivar [facility], [facility].; [facility], [facility]. 09-05-2020 11:39-0400 Heart rate 87 /min Kisha Menjivar [facility], Inc.; [facility], [facility]. 09-05-2020 11:39-0400 Systolic blood pressure 112 mm[Hg] Kisha Menjivar [facility], Inc.; [facility], [facility]. 06-30-2020 09:55-0500 Body height 176.53 cm LINDSAY GRATE RN [facility], Inc.; [facility], [facility] 06-30-2020 09:55-0500 Body mass index (BMI) [Ratio] 29.84 kg/m2 LINDSAY GRATE RN [facility], Inc.; [facility], [facility] 06-30-2020 09:55-0500 Body surface area Derived from formula 2.1 m2 LINDSAY GRATE RN [facility], [facility].; [facility], [facility]. 06-30-2020 09:55-0500 Body weight 92.99 kg LINDSAY GRATE [facility], [facility].; [facility], [facility]. 06-30-2020 09:55-0500 Diastolic blood pressure 87 mm[Hg] LINDSAY GRATE [facility], [facility].; [facility], [facility]. 06-30-2020 09:55-0500 Heart rate 67 /min LINDSAY GRATE [facility], Inc.; [facility], [facility]. 06-30-2020 09:55-0500 Systolic blood pressure 145 mm[Hg] LINDSAY GRATE [facility], [facility].; [facility], [facility]. 04-21-2020 10:10-0500 Body height 176.53 cm LINDSAY GRATE [facility], [facility].; [facility], [facility]. 04-21-2020 10:10-0500 Body mass index (BMI) [Ratio] 29.69 kg/m2 LINDSAY GRATE [facility], [facility].; [facility], [facility]. 04-21-2020 10:10-0500 Body surface area Derived from formula 2.09 m2 LINDSAY GRATE [facility], [facility].; [facility], [facility]. 04-21-2020 10:10-0500 Body weight 92.53 kg LINDSAY GRATE RN [facility], [facility].; [facility], [facility]. 04-21-2020 10:10-0500 Diastolic blood pressure 117 mm[Hg] LINDSAY GRATE [facility], [facility].; [facility], [facility]. 04-21-2020 10:10-0500 Heart rate 69 /min LINDSAY GRATE [facility], [facility].; [facility], [facility]. 04-21-2020 10:10-0500 Systolic blood pressure 181 mm[Hg] LINDSAY GRATE RN [facility], [facility].; [facility], [facility]. 03-24-2020 12:57-0500 Body height 176.53 cm LINDSAY GRATE [facility], [facility].; [facility], [facility]. 03-24-2020 12:57-0500 Body mass index (BMI) [Ratio] 29.69 kg/m2 LINDSAY GRATE [facility], [facility].; [facility], [facility]. 03-24-2020 12:57-0500 Body surface area Derived from formula 2.09 m2 LINDSAY GRATE [facility], [facility].; [facility], [facility]. 03-24-2020 12:57-0500 Body weight 92.53 kg LINDSAY GRATE [facility], [facility].; [facility], [facility]. 03-24-2020 12:57-0500 Diastolic blood pressure 85 mm[Hg] LINDSAY GRATE [facility], [facility].; [facility], [facility]. 03-24-2020 12:57-0500 Heart rate 97 /min LINDSAY GRATE [facility], [facility].; [facility], [facility]. 03-24-2020 12:57-0500 Systolic blood pressure 125 mm[Hg] LINDSAY GRATE [facility], [facility].; [facility], [facility]. 12-31-2019 09:23-0400 Body height 176.53 cm LINDSAY GRATE [facility], [facility].; [facility], [facility]. 12-31-2019 09:23-0400 Body mass index (BMI) [Ratio] 29.55 kg/m2 LINDSAY GRATE [facility], [facility].; [facility], [facility]. 12-31-2019 09:23-0400 Body surface area Derived from formula 2.09 m2 LINDSAY GRATE [facility], [facility].; [facility], [facility]. 12-31-2019 09:23-0400 Body weight 92.08 kg LINDSAY GRATE [facility], [facility].; [facility], Inc[facility] 12-31-2019 09:23-0400 Diastolic blood pressure 82 mm[Hg] LINDSAY GRATE RN [facility], [facility].; [facility], Inc[facility] 12-31-2019 09:23-0400 Heart rate 65 /min LINDSAY GRATE RN [facility], [facility].; [facility], [facility]. 12-31-2019 09:23-0400 Systolic blood pressure 130 mm[Hg] LINDSAY GRATE RN [facility], [facility].; [facility], [facility]. 08-06-2019 09:53-0400 Body height 176.53 cm LINDSAY GRATE LUCERO [facility], [facility].; [facility], Inc[facility] 08-06-2019 09:53-0400 Body mass index (BMI) [Ratio] 29.11 kg/m2 LINDSAY GRATE LUCERO [facility], [facility].; [facility], [facility]. 08-06-2019 09:53-0400 Body surface area Derived from formula 2.08 m2 LINDSAY GRATE RN [facility], [facility].; [facility], [facility]. 08-06-2019 09:53-0400 Body weight 90.72 kg LINDSAY GRATE RN [facility], [facility].; [facility], [facility]. 08-06-2019 09:53-0400 Diastolic blood pressure 89 mm[Hg] LINDSAY GRATE LUCERO [facility] [employer] [facility], [facility].; [facility], [facility]. 08-06-2019 09:53-0400 Heart rate 61 /min LINDSAY GRATE RN [facility], [facility].; [facility] [employer] [facility], [facility]. 08-06-2019 09:53-0400 Systolic blood pressure 136 mm[Hg] LINDSAY GRATE RN [facility] [employer] [facility], [facility].; [facility] [employer] [facility], [facility]. 07-02-2019 10:46-0500 Diastolic blood pressure 99 mm[Hg] MARILYNN LICEA Work Phone: [facility] [employer] [facility] 07-02-2019 10:46-0500 Heart rate 75 /min MARILYNN BEGUM FIELD SALES ASSOCIATE-C Work Phone: [facility] 07-02-2019 10:46-0500 Systolic blood pressure 172 mm[Hg] MARILYNN BEGUM FIELD SALES ASSOCIATE-C Work Phone: [facility] [employer] [facility].; [facility] 07-02-2019 10:09-0500 Body height 176.53 cm [facility], [facility].; [facility] [employer] [facility] 07-02-2019 10:09-0500 Body mass index (BMI) [Ratio] 28.82 kg/m2 [facility], Inc.; [facility] [employer] [facility] 07-02-2019 10:09-0500 Body surface area Derived from formula 2.07 m2 [facility], Inc.; [facility]. 07-02-2019 10:09-0500 Body weight 89.81 kg [facility] ly [facility], Inc.; [facility] [employer] [facility], Inc. 03-13-2019 13:02-0500 Body height 176.53 cm Marlena Ledezma RN [facility], Inc.; [facility] [employer] [facility], Inc[facility] 03-13-2019 13:02-0500 Body mass index (BMI) [Ratio] 29.4 kg/m2 Marlena Ledezma RN [facility] [employer] [facility], [facility].; [facility] [employer] [facility], Inc[facility] 03-13-2019 13:02-0500 Body surface area Derived from formula 2.09 m2 Marlena Ledezma RN [facility] [employer] [facility], Inc.; [facility] [employer] [facility], Inc[facility] 03-13-2019 13:02-0500 Body temperature 98.1 [degF] Marlena Ledezma RN Imer Arambula [facility], Inc.; [facility], Inc[facility] 03-13-2019 13:02-0500 Body weight 91.63 kg Marlena Ledezma RN [facility], Inc.; [facility], Inc[facility] 03-13-2019 13:02-0500 Diastolic blood pressure 91 mm[Hg] Marlena Ledezma RN [facility], Inc.; [facility], Inc[facility] 03-13-2019 13:02-0500 Heart rate 76 /min Marlena Ledezma RN [facility], Inc.; [facility], Inc[facility] 03-13-2019 13:02-0500 Inhaled oxygen concentration 21 % Marlena Ledezma RN [facility], Inc.; [facility], Inc[facility] 03-13-2019 13:02-0500 SaO2% (BldA) [Mass fraction] 95 % Marlena Ledezma RN [facility], Inc.; [facility], Inc[facility] 03-13-2019 13:02-0500 Systolic blood pressure 145 mm[Hg] Marlena Ledezma RN [facility], Inc.; [facility], Inc. 01-02-2019 09:25-0400 Body height 176.53 cm Kisha A [facility], Inc.; [facility], Inc[facility] 01-02-2019 09:25-0400 Body mass index (BMI) [Ratio] 29.11 kg/m2 Kisha Menjivar [facility], Inc.; [facility], Inc. 01-02-2019 09:25-0400 Body surface area Derived from formula 2.08 m2 Kisha A [facility], Inc.; [facility], Inc. 01-02-2019 09:25-0400 Body weight 90.72 kg Kisha A [facility], Inc.; [facility], Inc. 01-02-2019 09:25-0400 Diastolic blood pressure 84 mm[Hg] Kisha Willams [facility] [employer] [facility], Inc.; [facility] [employer] [facility], Inc. 01-02-2019 09:25-0400 Heart rate 70 /min Kisha [facility]ula [facility] ly [facility], Inc.; [facility] [employer] [facility], Inc. 01-02-2019 09:25-0400 Systolic blood pressure 128 mm[Hg] Kisha Willams [facility] [employer] [facility], Inc.; [facility] [employer] [facility], Inc[facility] 10-31-2018 09:19-0400 Diastolic blood pressure 78 mm[Hg] MARILYNN BEGUM FIELD SALES ASSOCIATE-C Work Phone: [place] [facility], Inc.; [facility] [employer] [facility], Inc[facility] 10-31-2018 09:19-0400 Systolic blood pressure 120 mm[Hg] MARILYNN EBGUM FIELD SALES ASSOCIATE-C Work Phone: [place] [facility], Inc.; [facility] [employer] [facility], Inc. 10-31-2018 08:53-0400 Body height 176.53 cm NOLVIA [facility] Center[facility], Inc.; [facility] [employer] [facility], Inc. 10-31-2018 08:53-0400 Body mass index (BMI) [Ratio] 29.77 kg/m2 NOLVIA [facility] [employer] [facility], Inc.; [facility] [employer] [facility], Inc. 10-31-2018 08:53-0400 Body surface area Derived from formula 2.1 m2 NOLVIA [facility] CenterAudience[facility], Inc.; [facility] [employer] [facility], Inc. 10-31-2018 08:53-0400 Body weight 92.76 kg NOLVIA [facility] CenterMag[facility], Inc.; [facility] [employer] [facility], Inc. 10-31-2018 08:53-0400 Diastolic blood pressure 94 mm[Hg] NOLVIA [facility] [employer] [facility], Inc.; [facility] [employer] [facility], Inc. 10-31-2018 08:53-0400 Heart rate 67 /min [facility] Fami [facility], Inc.; [facility], Inc. 10-31-2018 08:53-0400 Systolic blood pressure 150 mm[Hg] NOLVIA [facility], Inc.; [facility], Inc. 2018 09:26-0400 Body height 176.53 cm LINDSAY GRATE [facility], Inc.; [facility], Inc. 2018 09:26-0400 Body mass index (BMI) [Ratio] 29.87 kg/m2 LINDSAY GRATE [facility], Inc.; [facility], Inc. 2018 09:26-0400 Body surface area Derived from formula 2.1 m2 LINDSAY GRATE [facility], Inc.; [facility], [facility]. 2018 09:26-0400 Body weight 93.08 kg LINDSAY GRATE [facility], [facility].; [facility], Inc. 2018 09:26-0400 Diastolic blood pressure 79 mm[Hg] LINDSAY GRATE [facility], Inc.; [facility], Inc. 2018 09:26-0400 Heart rate 73 /min LINDSAY GRATE [facility], [facility].; [facility]. 2018 09:26-0400 Systolic blood pressure 114 mm[Hg] LINDSAY GRATE [facility], Inc.; [facility], Inc. 07-25-2018 10:08-0400 Body height 176.53 cm LINDSAY GRATE [facility], [facility].; [facility], Inc. 07-25-2018 10:08-0400 Body mass index (BMI) [Ratio] 31 kg/m2 LINDSAY GRATE [facility], Inc.; [facility], Inc. 07-25-2018 10:08-0400 Body surface area Derived from formula 2.13 m2 LINDSAY GRATE RN [facility], [facility].; [facility], Inc. 07-25-2018 10:08-0400 Body weight 96.62 kg LINDSAY GRATE [facility], [facility].; [facility], Inc. 07-25-2018 10:08-0400 Diastolic blood pressure 93 mm[Hg] LINDSAY GRATE [facility], Inc.; [facility], Inc. 07-25-2018 10:08-0400 Heart rate 80 /min LINDSAY GRATE [facility], [facility].; [facility], Inc. 07-25-2018 10:08-0400 Systolic blood pressure 159 mm[Hg] LINDSAY GRATE [facility], Inc.; [facility], Inc. 06-27-2018 08:53-0500 Body height 176.53 cm LINDSAY GRATE [facility], [facility].; [facility], [employer]. 06-27-2018 08:53-0500 Body mass index (BMI) [Ratio] 32.02 kg/m2 LINDSAY GRATE [facility], Inc.; [facility], Inc. 06-27-2018 08:53-0500 Body surface area Derived from formula 2.16 m2 LINDSAY GRATE [facility], Inc.; [facility], Inc. 06-27-2018 08:53-0500 Body weight 99.79 kg LINDSAY GRATE [facility], [facility].; [facility] [employer] [facility], Inc. 06-27-2018 08:53-0500 Diastolic blood pressure 74 mm[Hg] LINDSAY GRATE [facility], Inc.; [facility] [employer] [facility], Inc. 06-27-2018 08:53-0500 Heart rate 76 /min LINDSAY GRATE [facility], [facility].; [facility] [employer] [facility], [employer]. 06-27-2018 08:53-0500 Systolic blood pressure 113 mm[Hg] LINDSAY GRATE [facility], Inc.; [facility], Inc. 06-06-2018 08:55-0500 Body height 176.53 cm LINDSAY GRATE [facility], [facility].; [facility], Inc. 06-06-2018 08:55-0500 Body mass index (BMI) [Ratio] 30.49 kg/m2 LINDSAY GRATE [facility], Inc.; [facility], Inc. 06-06-2018 08:55-0500 Body surface area Derived from formula 2.12 m2 LINDSAY GRATE [facility], Inc.; [facility], Inc. 06-06-2018 08:55-0500 Body weight 95.03 kg LINDSAY GRATE [facility], Inc.; [facility], Inc. 06-06-2018 08:55-0500 Diastolic blood pressure 78 mm[Hg] LINDSAY GRATE [facility], Inc.; [facility], [employer]. 06-06-2018 08:55-0500 Heart rate 80 /min LINDSAY GRATE [facility], [facility].; [facility], [employer]. 06-06-2018 08:55-0500 Systolic blood pressure 116 mm[Hg] LINDSAY GRATE [facility], Inc.; [facility], Inc. 04-14-2018 09:12-0500 Body height 176.53 cm LINDSAY GRATE [facility], Inc.; [facility] [employer] [facility], Inc. 04-14-2018 09:12-0500 Body mass index (BMI) [Ratio] 30.68 kg/m2 LINDSAY GRATE [facility] [employer] [facility], Inc.; [facility] [employer] [facility], Inc. 04-14-2018 09:12-0500 Body surface area Derived from formula 2.12 m2 LINDSAY GRATE [facility] [place] [employer] [facility], Inc.; [facility] [employer] [facility], Inc. 04-14-2018 09:12-0500 Body weight 95.62 kg LINDSAY GRATE [facility], Inc.; [facility] [employer] [facility], Inc. 04-14-2018 09:12-0500 Diastolic blood pressure 99 mm[Hg] LINDSAY GRATE RN [facility], Inc.; [facility], Inc. 04-14-2018 09:12-0500 Heart rate 69 /min LINDSAY GRATE RN [facility], [facility].; [facility], Inc. 04-14-2018 09:12-0500 Systolic blood pressure 154 mm[Hg] LINDSAY GRATE RN [facility], Inc.; [facility], Inc. 12-27-2017 10:09-0400 Body height 176.53 cm [facility], [facility].; [facility] [employer] [facility], Inc. 12-27-2017 10:09-0400 Body mass index (BMI) [Ratio] 30.28 kg/m2 [facility], Inc[facility] 12-27-2017 10:09-0400 Body surface area Derived from formula 2.11 m2 [facility].; [facility], Inc. 12-27-2017 10:09-0400 Body weight 94.35 kg [facility], [facility].; [facility] [employer] [facility], Inc. 12-27-2017 10:09-0400 Diastolic blood pressure 79 mm[Hg] [facility] [employer] [facility], Inc. 12-27-2017 10:09-0400 Heart rate 76 /min [facility], [facility].; [facility] [employer] [facility], Inc. 12-27-2017 10:09-0400 Systolic blood pressure 116 mm[Hg] [facility] [employer] [facility], Inc.; [facility] [employer] [facility], Inc. 10-18-2017 10:40-0400 Body height 176.53 cm LINDSAY GRATE RN [facility], [facility].; [facility] [employer] [facility], Inc. 10-18-2017 10:40-0400 Body mass index (BMI) [Ratio] 30.42 kg/m2 LINDSAY GRATE LUCERO [facility] [employer] [facility], ClasesD.; [facility] [employer] [facility], Inc. 10-18-2017 10:40-0400 Body surface area Derived from formula 2.12 m2 LINDSAY GRATE LUCERO [place] [facility], Inc.; [facility], Inc. 10-18-2017 10:40-0400 Body weight 94.8 kg LINDSAY GRATE [facility]UC[facility] [employer] [facility], Inc.; [facility] [employer] [facility], Inc[facility] 10-18-2017 10:40-0400 Diastolic blood pressure 79 mm[Hg] LINDSAY GRATE LUCERO [facility] [employer] [facility], Inc.; [facility] [employer] [facility], Inc. 10-18-2017 10:40-0400 Heart rate 80 /min LINDSAY GRATE [facility], Inc.; [facility] [employer] [facility], Inc. 10-18-2017 10:40-0400 Systolic blood pressure 119 mm[Hg] LINDSAY GRATE LUCERO [place] [facility].; [facility] [employer] [facility], Inc[facility] 06-28-2017 09:31-0500 Diastolic blood pressure 88 mm[Hg] JI ELIZABETH MD Work Phone: [facility] [employer] [facility] [employer] [facility], Inc[facility] 06-28-2017 09:31-0500 Systolic blood pressure 146 mm[Hg] JI ELIZABETH MD Work Phone: [facility] [employer] [facility].; [facility] [employer], [employer] 06-28-2017 09:08-0500 Body height 176.53 cm MARILYNN ANTON-Tyson Work Phone: [place] [facility].; [facility] [employer], Inc[employer] 06-28-2017 09:08-0500 Body mass index (BMI) [Ratio] 29.96 kg/m2 MARILYNN ANTON-Tyson Work Phone: [facility].; [facility] 06-28-2017 09:08-0500 Body surface area Derived from formula 2.1 m2 MARILYNN BONILLAACRMEN FIELD SALES ASSOCIATE-C Work Phone: [facility].; [facility], Inc[employer] 06-28-2017 09:08-0500 Body temperature 98.5 [degF] MARILYNN BONILLACARMEN FIELD SALES ASSOCIATE-C Work Phone: [facility].; [facility], Inc[employer] 06-28-2017 09:08-0500 Body weight 93.35 kg MARILYNN BEGUM FIELD SALES ASSOCIATE-C Work Phone: [facility].; [facility], Inc[facility] 06-28-2017 09:08-0500 Diastolic blood pressure 93 mm[Hg] MARILYNN BONILLACARMEN FIELD SALES ASSOCIATE-C Work Phone: [facility].; [facility], Inc[facility] 06-28-2017 09:08-0500 Heart rate 74 /min MARILYNN BEGUM FIELD SALES ASSOCIATE-C Work Phone: [facility].; [facility], Inc[employer] 06-28-2017 09:08-0500 Systolic blood pressure 166 mm[Hg] MARILYNN AZEVEDOCHAD FIELD SALES ASSOCIATE-C Work Phone: [facility].; [facility], Inc[employer] 04-26-2017 13:16-0500 Diastolic blood pressure 88 mm[Hg] Kisha Loaiza [facility], Inc.; [facility], Inc. 04-26-2017 13:16-0500 Heart rate 82 /min Kisha Loaiza [facility], Inc.; [facility], Inc. 04-26-2017 13:16-0500 Systolic blood pressure 127 mm[Hg] Kisha Loaiza [facility], Inc.; [facility], Inc. 04-26-2017 12:58-0500 Body height 176.[address] [facility], Inc.; [facility], Inc. 04-26-2017 12:58-0500 Body mass index (BMI) [Ratio] 30.28 kg/m2 Kisha Loaiza [facility], Inc.; [facility], Inc. 04-26-2017 12:58-0500 Body surface area Derived from formula 2.11 m2 Kisha Menjivar [facility], Inc.; [facility], Inc. 04-26-2017 12:58-0500 Body weight 94.35 kg [facility]isha [facility], Inc.; [facility] [employer] 04-26-2017 12:58-0500 Diastolic blood pressure 87 mm[Hg] Kisha Menjivar [facility], [facility].; [facility] 04-26-2017 12:58-0500 Heart rate 77 /min [facility] 04-26-2017 12:58-0500 Systolic blood pressure 146 mm[Hg] Kisha Menjivar [facility], Inc.; [facility] 04-05-2017 11:39-0500 Body height 176.53 cm Brenda Boudreaux RN [facility], Inc.; [facility] [employer] 04-05-2017 11:39-0500 Body mass index (BMI) [Ratio] 30.13 kg/m2 Brenda Boudreaux RN [facility], Inc.; [facility] [employer] 04-05-2017 11:39-0500 Body surface area Derived from formula 2.11 m2 Brenda Boudreaux RN [facility], Inc.; [facility] [employer] 04-05-2017 11:39-0500 Body temperature 99.2 [degF] Brenda Boudreaux RN Imer [facility], Inc.; [facility] [employer] 04-05-2017 11:39-0500 Body weight 93.9 kg Brenda Boudreaux RN Imer Arambula [facility], Inc.; [facility] 04-05-2017 11:39-0500 Diastolic blood pressure 88 mm[Hg] Brenda Boudreaux RN [facility], Inc.; [facility] 04-05-2017 11:39-0500 Heart rate 70 /min Brenda Boudreaux RN Imer Arambula [facility], Inc.; [facility] [employer] 04-05-2017 11:39-0500 Systolic blood pressure 144 mm[Hg] Brenda Boudreaux RN [facility], Inc.; [facility] [employer] 12-28-2016 09:36-0400 Body height 176.53 cm Kishalavon Loaiza [facility], Inc.; [facility] [employer] 12-28-2016 09:36-0400 Body mass index (BMI) [Ratio] 29.55 kg/m2 Kisha Menjivar [facility], Inc.; [facility] 12-28-2016 09:36-0400 Body surface area Derived from formula 2.09 m2 Kisha A [facility], Inc.; [facility] [employer] 12-28-2016 09:36-0400 Body weight 92.08 kg Kishalavon [facility], Inc.; [facility] [employer] [facility], Inc[facility] 12-28-2016 09:36-0400 Diastolic blood pressure 84 mm[Hg] Kisha A [facility], Inc.; [facility] 12-28-2016 09:36-0400 Heart rate 66 /min Kisha A [facility], Inc.; [facility] [employer] [facility], Inc[facility] 12-28-2016 09:36-0400 Systolic blood pressure 135 mm[Hg] Kisha Menjivar Loaiza [facility], Inc.; [facility] 08-31-2016 09:52-0400 Body height 176.53 cm [facility], Inc.; [facility] 08-31-2016 09:52-0400 Body mass index (BMI) [Ratio] 28.21 kg/m2 [facility], Inc.; [facility] 08-31-2016 09:52-0400 Body surface area Derived from formula 2.05 m2 [facility], Inc.; [facility] 08-31-2016 09:52-0400 Body weight 87.91 kg [facility], Inc.; [facility] 08-31-2016 09:52-0400 Diastolic blood pressure 80 mm[Hg] [facility] [employer] [facility], Inc.; [facility] [employer] 08-31-2016 09:52-0400 Heart rate 66 /min [facility], Inc.; [facility] 08-31-2016 09:52-0400 Systolic blood pressure 117 mm[Hg] [facility], Inc.; [facility] 06-08-2016 12:16-0500 Body height 176.53 cm [facility], Inc.; [facility] [employer] [facility], Inc[employer] 06-08-2016 12:16-0500 Body mass index (BMI) [Ratio] 27.31 kg/m2 [facility] [employer] [facility], Inc.; [facility] [employer] [facility], Inc. 06-08-2016 12:16-0500 Body surface area Derived from formula 2.02 m2 [facility] [employer] [facility], Inc.; [facility] [employer] 06-08-2016 12:16-0500 Body temperature 98 [degF] NOLVIA [facility] [employer].; [facility] 06-08-2016 12:16-0500 Body weight 85.1 kg [facility], Inc.; [facility] 06-08-2016 12:16-0500 Diastolic blood pressure 89 mm[Hg] NOLVIA [facility], Inc.; [facility] 06-08-2016 12:16-0500 Heart rate 61 /min [facility], Inc.; [facility] 06-08-2016 12:16-0500 Systolic blood pressure 152 mm[Hg] NOLVIA [facility], Inc.; [facility] 03-02-2016 10:07-0400 Body height 176.53 cm [facility], Inc.; [facility] 03-02-2016 10:07-0400 Body mass index (BMI) [Ratio] 27.22 kg/m2 [facility]IA [facility], Inc.; [facility] 03-02-2016 10:07-0400 Body surface area Derived from formula 2.02 m2 NOLVIA [facility], Inc.; [facility] 03-02-2016 10:07-0400 Body weight 84.82 kg NOLVIA [facility], Inc.; [facility] 03-02-2016 10:07-0400 Diastolic blood pressure 85 mm[Hg] NOLVAI [facility], Inc.; [facility] 03-02-2016 10:07-0400 Heart rate 60 /min [facility], Inc.; [facility] 03-02-2016 10:07-0400 Systolic blood pressure 125 mm[Hg] [facility], Inc.; [facility] 10-14-2015 10:09-0400 Body height 176.53 cm [facility], Inc.; [facility] 10-14-2015 10:09-0400 Body mass index (BMI) [Ratio] 28.24 kg/m2 [facility], Inc.; [facility], Inc[facility] 10-14-2015 10:09-0400 Body surface area Derived from formula 2.05 m2 [facility], Inc.; [facility], Inc[facility] 10-14-2015 10:09-0400 Body weight 88 kg [facility], Inc.; [facility], Inc[facility] 10-14-2015 10:09-0400 Diastolic blood pressure 83 mm[Hg] [facility], Inc.; [facility], Inc[facility] 10-14-2015 10:09-0400 Heart rate 64 /min [facility], Inc.; [facility], Inc[facility] 10-14-2015 10:09-0400 Systolic blood pressure 132 mm[Hg] [facility], Inc.; [facility], Inc[facility] 06-17-2015 09:15-0500 Diastolic blood pressure 80 mm[Hg] JI ELIZABETH MD Work Phone: [facility] [employer] [facility], Inc.; [facility] [employer] [facility], Inc[facility] 06-17-2015 09:15-0500 Systolic blood pressure 110 mm[Hg] JI ELIZABETH MD Work Phone: [facility] [employer] [facility], Inc.; [facility] [employer] [facility], Inc[facility] 06-17-2015 09:02-0500 Body height 176.53 cm [facility], Inc.; [facility] [employer] [facility], Inc[facility] 06-17-2015 09:02-0500 Body mass index (BMI) [Ratio] 30.71 kg/m2 [facility], Inc.; [facility], Inc[facility] 06-17-2015 09:02-0500 Body surface area Derived from formula 2.12 m2 [facility], Inc.; [facility], Inc[facility] 06-17-2015 09:02-0500 Body weight 95.71 kg NOLVIA [facility] Fami ly [facility], Inc.; [facility], Inc[facility] 06-17-2015 09:02-0500 Diastolic blood pressure 91 mm[Hg] [facility], Inc.; [facility], Inc[facility] 06-17-2015 09:02-0500 Heart rate 76 /[facility], Inc.; [facility], Inc[facility] 06-17-2015 09:02-0500 Systolic blood pressure 137 mm[Hg] [facility], Inc.; [facility], Inc[facility] 02-18-2015 08:54-0400 Body height 172.72 cm [facility], Inc.; [facility], Inc[facility] 02-18-2015 08:54-0400 Body mass index (BMI) [Ratio] 31.09 kg/m2 NOLVIA [facility], Inc.; [facility], Inc[facility] 02-18-2015 08:54-0400 Body surface area Derived from formula 2.06 m2 [facility], Inc.; [facility], Inc[facility] 02-18-2015 08:54-0400 Body temperature 98.5 [degF] NOLVIA [facility], Inc.; [facility], [facility]. 02-18-2015 08:54-0400 Body weight 92.76 kg NOLVIA [facility] Fami ly [facility], Inc.; [facility], Inc[facility] 02-18-2015 08:54-0400 Diastolic blood pressure 90 mm[Hg] [facility], Inc.; [facility], Inc[facility] 02-18-2015 08:54-0400 Heart rate 76 /min [facility] ly [facility], Inc.; [facility], Inc[facility] 02-18-2015 08:54-0400 Systolic blood pressure 148 mm[Hg] NOLVIA [facility], Inc.; [facility], Inc[facility] 10-15-2014 08:43-0400 Body height 172.72 cm [facility], Inc.; [facility], Inc[facility] 10-15-2014 08:43-0400 Body mass index (BMI) [Ratio] 31.32 kg/m2 [facility], Inc.; [facility], Inc[facility] 10-15-2014 08:43-0400 Body surface area Derived from formula 2.07 m2 [facility], Inc.; [facility], [facility]. 10-15-2014 08:43-0400 Body weight 93.44 kg [facility], Inc.; [facility], [facility]. 10-15-2014 08:43-0400 Diastolic blood pressure 91 mm[Hg] NOLVIA [facility], Inc.; [facility], Inc[facility] 10-15-2014 08:43-0400 Heart rate 78 /min [facility] ly [facility], Inc.; [facility], [facility]. 10-15-2014 08:43-0400 Systolic blood pressure 136 mm[Hg] [facility], Inc.; [facility], Inc[facility] 06-04-2014 10:13-0500 Body height 172.72 cm Brenda Boudreaux RN [facility], Inc.; [facility], Inc[facility] 06-04-2014 10:13-0500 Body mass index (BMI) [Ratio] 30.87 kg/m2 Brenda Boudreaux RN [facility], Inc.; [facility], Inc[facility] 06-04-2014 10:13-0500 Body surface area Derived from formula 2.06 m2 Bredna Boudreaux RN [facility], Inc.; [facility], Inc[facility] 06-04-2014 10:13-0500 Body temperature 98.6 [degF] Brenda Boudreaux RN [facility], Inc.; [facility], Inc[facility] 06-04-2014 10:13-0500 Body weight 92.08 kg Brenda Boudreaux RN [facility], Inc.; [facility], Inc[facility] 06-04-2014 10:13-0500 Diastolic blood pressure 85 mm[Hg] Brenda Boudreaux RN [facility], Inc.; [facility], Inc[facility] 06-04-2014 10:13-0500 Heart rate 85 /min Brenda Bouderaux RN [facility], Inc.; [facility], Inc[facility] 06-04-2014 10:13-0500 Systolic blood pressure 131 mm[Hg] Brenda Boudreaux RN [facility], Inc.; [facility], Inc[facility] 06-04-2014 09:51-0500 Body height 172.72 cm Brenda Boudreaux RN [facility], Inc.; [facility], Inc[facility] 06-04-2014 09:51-0500 Body mass index (BMI) [Ratio] 30.87 kg/m2 Brenda Boudreaux RN [facility], Inc.; [facility], Inc[facility] 06-04-2014 09:51-0500 Body surface area Derived from formula 2.06 m2 Brenda Boudreaux RN [facility], [facility].; [facility], Inc[facility] 06-04-2014 09:51-0500 Body temperature 98.6 [degF] Brenda Boudreaux RN [facility], Inc.; [facility], Inc[facility] 06-04-2014 09:51-0500 Body weight 92.08 kg Brenda Boudreaux RN [facility], Inc.; [facility], Inc[facility] 06-04-2014 09:51-0500 Diastolic blood pressure 85 mm[Hg] Brenda Boudreaux RN [facility], Inc.; [facility], [facility]. 06-04-2014 09:51-0500 Heart rate 85 /min Brenda Boudreaux RN [facility], Inc.; [facility], Inc[facility] 06-04-2014 09:51-0500 Systolic blood pressure 131 mm[Hg] Brenda Boudreaux RN [facility], Inc.; [facility], Inc[facility] 05-03-2014 13:18-0500 Body height 172.72 cm [facility], Inc.; [facility], Inc[facility] 05-03-2014 13:18-0500 Body mass index (BMI) [Ratio] 30.71 kg/m2 [facility], [facility].; [facility], Inc[facility] 05-03-2014 13:18-0500 Body surface area Derived from formula 2.05 m2 [facility], [facility].; [facility], [facility]. 05-03-2014 13:18-0500 Body weight 91.63 kg [facility], Inc.; [facility], [facility]. 05-03-2014 13:18-0500 Diastolic blood pressure 103 mm[Hg] [facility], Inc.; [facility], Inc[facility] 05-03-2014 13:18-0500 Heart rate 97 /min [facility], Inc.; [facility], [facility]. 05-03-2014 13:18-0500 Systolic blood pressure 141 mm[Hg] [facility], Inc.; [facility], [facility]. 03-26-2014 14:00-0500 Body height 172.72 cm [facility], Inc.; [facility], Inc[facility] 03-26-2014 14:00-0500 Body mass index (BMI) [Ratio] 31.32 kg/m2 [facility], Inc.; [facility], Inc[facility] 03-26-2014 14:00-0500 Body surface area Derived from formula 2.07 m2 [facility] [employer] [facility], Inc.; [facility], Inc[facility] 03-26-2014 14:00-0500 Body weight 93.44 kg NOLVIA [facility], Inc.; [facility], Inc[facility] 03-26-2014 14:00-0500 Diastolic blood pressure 94 mm[Hg] [facility], Inc.; [facility], Inc[facility] 03-26-2014 14:00-0500 Heart rate 81 /min [facility], Inc.; [facility], Inc[facility] 03-26-2014 14:00-0500 Systolic blood pressure 135 mm[Hg] [facility] [employer] [facility], Inc.; [facility] [employer] [facility], Inc. 03-22-2014 09:49-0500 Body height 172.72 cm [facility] ly [facility], Inc.; [facility] [employer] [facility], Inc. 03-22-2014 09:49-0500 Body mass index (BMI) [Ratio] 31.17 kg/m2 [facility] [employer] [facility], Inc.; [facility], Inc[facility] 03-22-2014 09:49-0500 Body surface area Derived from formula 2.07 m2 [facility] [employer] [facility], Inc.; [facility] [employer] [facility], Inc. 03-22-2014 09:49-0500 Body weight 92.99 kg [facility] ly [facility], Inc.; [facility] [employer] [facility], Inc. 03-22-2014 09:49-0500 Diastolic blood pressure 74 mm[Hg] [facility] [employer] [facility], Inc.; [facility] [employer] [facility], Inc. 03-22-2014 09:49-0500 Heart rate 83 /min [facility], Inc.; [facility] [employer] [facility], Inc. 03-22-2014 09:49-0500 Systolic blood pressure 105 mm[Hg] [facility] [employer] [facility], Inc.; [facility], Inc[facility] 02-12-2014 13:41-0400 Body height 172.72 cm [facility], Inc.; [facility], Inc[facility] 02-12-2014 13:41-0400 Body mass index (BMI) [Ratio] 31.02 kg/m2 [facility] [employer] [facility], Inc.; [facility], Inc[facility] 02-12-2014 13:41-0400 Body surface area Derived from formula 2.06 m2 [facility] [employer] [facility], Inc.; [facility] [employer] [facility], Inc. 02-12-2014 13:41-0400 Body weight 92.53 kg [facility], Inc.; [facility] [employer] [facility], Inc. 02-12-2014 13:41-0400 Diastolic blood pressure 88 mm[Hg] [facility] [employer] [facility], Inc.; [facility] [employer] [facility], [facility]. 02-12-2014 13:41-0400 Heart rate 81 /min [facility], Inc.; [facility] [employer] [facility], [facility]. 02-12-2014 13:41-0400 Systolic blood pressure 135 mm[Hg] [facility] [employer] [facility], Inc.; [facility] [employer] [facility], Inc[facility] 01-29-2014 12:50-0400 Body height 172.72 cm [facility], Inc.; [facility] [employer] [facility], Inc. 01-29-2014 12:50-0400 Body mass index (BMI) [Ratio] 30.87 kg/m2 [facility] [employer] [facility], Inc.; [facility] [employer] [facility], Inc. 01-29-2014 12:50-0400 Body surface area Derived from formula 2.06 m2 NOLVIA [facility] [employer] [facility], Inc.; [facility] [employer] [facility], Inc. 01-29-2014 12:50-0400 Body weight 92.08 kg [facility] [employer] [facility], Inc.; [facility] [employer] [facility], Inc. 01-29-2014 12:50-0400 Diastolic blood pressure 81 mm[Hg] [facility], Inc.; [facility], [facility]. 01-29-2014 12:50-0400 Heart rate 80 /min [facility], Inc.; [facility], Inc[facility] 01-29-2014 12:50-0400 Systolic blood pressure 128 mm[Hg] NOLVIA [facility], Inc.; [facility], Inc[facility] 01-22-2014 10:17-0400 Body height 172.72 cm TYE Turcios [facility], Inc.; [facility], [facility]. 01-22-2014 10:17-0400 Body mass index (BMI) [Ratio] 30.41 kg/m2 [facility], [facility].; [facility], [facility]. 01-22-2014 10:17-0400 Body surface area Derived from formula 2.04 m2 TYE Turcios [facility], [facility].; [facility], [facility]. 01-22-2014 10:17-0400 Body weight 90.72 kg TYE Turcios [facility], Inc.; [facility], [facility]. 01-22-2014 10:17-0400 Diastolic blood pressure 88 mm[Hg] TYE Turcios [facility], Inc.; [facility], [facility]. 01-22-2014 10:17-0400 Heart rate 80 /min TYE LOAIZA [facility], Inc.; [facility], [facility]. 01-22-2014 10:17-0400 Systolic blood pressure 137 mm[Hg] TYE Turcios [facility] [employer] [facility], Inc.; [facility], [facility]. 09-25-2013 11:21-0400 Diastolic blood pressure 80 mm[Hg] JI ELIZABETH MD Work Phone: [facility] [employer] [facility] CampusDocTree [facility].; [facility] [employer] [facility], Inc[facility] 09-25-2013 11:21-0400 Systolic blood pressure 140 mm[Hg] JI ELIZABETH MD Work Phone: [facility] [employer] [facility] CampusDocTree [facility].; [facility], Inc[facility] 09-25-2013 10:51-0400 Body height 172.72 cm [facility], [facility].; [facility], Inc[facility] 09-25-2013 10:51-0400 Body mass index (BMI) [Ratio] 29.8 kg/m2 [facility], Inc.; [facility], Inc[facility] 09-25-2013 10:51-0400 Body surface area Derived from formula 2.03 m2 [facility], [facility].; [facility], [facility]. 09-25-2013 10:51-0400 Body weight 88.91 kg [facility], [facility].; [facility], [facility]. 09-25-2013 10:51-0400 Diastolic blood pressure 93 mm[Hg] [facility], [facility]. 09-25-2013 10:51-0400 Heart rate 73 /min [facility], Inc.; [facility], [facility]. 09-25-2013 10:51-0400 Systolic blood pressure 147 mm[Hg] [facility], Inc.; [facility], [facility]. 05-15-2013 11:10-0500 Diastolic blood pressure 80 mm[Hg] JI ELIZABETH MD Work Phone: [facility] [employer] [facility]gantto.; [facility], Inc[facility] 05-15-2013 11:10-0500 Systolic blood pressure 116 mm[Hg] JI ELIZABETH MD Work Phone: [facility] [employer] [facility], [employer].; [facility], Inc[facility] 05-15-2013 10:20-0500 Body height 172.72 cm TYE LOAIZA [facility].; [facility] 05-15-2013 10:20-0500 Body mass index (BMI) [Ratio] 30.18 kg/m2 STEVEChastity Turcios JOSSE Willams [facility], Inc.; [facility] Imer Santanaes [employer] [facility], Inc[facility] 05-15-2013 10:20-0500 Body surface area Derived from formula 2.04 m2 STEVEChastity Turcios JOSSE Willams [facility] [employer] [facility], [facility].; [facility] Imer Arambula [employer] [facility] 05-15-2013 10:20-0500 Body weight 90.04 kg TYE Turcios JOSSE Willams [facility] 05-15-2013 10:20-0500 Diastolic blood pressure 101 mm[Hg] STEVEChastity Turcios JOSSE Willams [facility] [employer] [facility] 05-15-2013 10:20-0500 Heart rate 71 /min STEVEChastity Turcios JOSSE Willams [facility], [facility].; [facility] [employer] [facility] 05-15-2013 10:20-0500 Systolic blood pressure 149 mm[Hg] STEVEChastity Turcios LOAIZA [facility], Inc.; [facility] [employer] [facility] 02-13-2013 10:54-0400 Body height 172.72 cm NOLVIA [facility], [facility].; [facility] [employer] [facility] 02-13-2013 10:54-0400 Body mass index (BMI) [Ratio] 29.65 kg/m2 NOLVIA [facility] [employer] [facility], [facility].; [facility] [employer] [facility] 02-13-2013 10:54-0400 Body surface area Derived from formula 2.02 m2 NOLVIA [facility] [employer] [facility], Inc.; [facility] [employer] [facility] 02-13-2013 10:54-0400 Body weight 88.45 kg NOLVIA CREWSYER Imer [facility], Inc.; [facility] [employer] [facility] 02-13-2013 10:54-0400 Diastolic blood pressure 97 mm[Hg] NOLVIA [facility] [employer] [facility], [facility].; [facility] [employer] [facility] 02-13-2013 10:54-0400 Heart rate 76 /min NOLVIA [facility], [facility].; [facility] [employer] [facility] 02-13-2013 10:54-0400 Systolic blood pressure 138 mm[Hg] [facility] 02-02-2013 09:54-0400 Body height 172.72 cm [facility] ly [facility], [facility].; [facility] 02-02-2013 09:54-0400 Body mass index (BMI) [Ratio] 29.35 kg/m2 [facility] 02-02-2013 09:54-0400 Body surface area Derived from formula 2.01 m2 [facility] [employer] [facility] 02-02-2013 09:54-0400 Body weight 87.54 kg [facility] ly [facility], [facility] 02-02-2013 09:54-0400 Diastolic blood pressure 87 mm[Hg] [facility] [employer] [facility] 02-02-2013 09:54-0400 Heart rate 70 /min [facility] 02-02-2013 09:54-0400 Systolic blood pressure 127 mm[Hg] [facility] 01-26-2013 10:42-0400 Body height 172.72 cm [facility] ly [facility], [facility] 01-26-2013 10:42-0400 Body mass index (BMI) [Ratio] 29.35 kg/m2 [facility] [employer] [facility] 01-26-2013 10:42-0400 Body surface area Derived from formula 2.01 m2 [facility] [employer] [facility] 01-26-2013 10:42-0400 [facility] 01-26-2013 10:42-0400 Diastolic blood pressure 99 mm[Hg] NOLVIA [facility], [facility].; [facility] 01-26-2013 10:42-0400 Heart rate 97 /min NOLVIA [facility], [facility] 01-26-2013 10:42-0400 Systolic blood pressure 141 mm[Hg] NOLVIA [facility], [facility] 12-26-2012 08:53-0400 Body height 172.72 cm [facility] ly [facility], [facility] 12-26-2012 08:53-0400 Body mass index (BMI) [Ratio] 29.12 kg/m2 [facility]. 12-26-2012 08:53-0400 Body surface area Derived from formula 2.01 m2 [facility], [facility].; [facility], [facility]. 12-26-2012 08:53-0400 Body weight 86.86 kg [facility] ly [facility], [facility], [facility]. 12-26-2012 08:53-0400 Diastolic blood pressure 79 mm[Hg] NOLVIA [facility] 12-26-2012 08:53-0400 Heart rate 71 /min [facility], [facility]. 12-26-2012 08:53-0400 Systolic blood pressure 117 mm[Hg] [facility] 08-22-2012 09:12-0400 Body height 172.72 cm Marlena Ledezma [facility] lavon [facility], [facility], [facility]. 08-22-2012 09:12-0400 Body mass index (BMI) [Ratio] 30.26 kg/m2 Marlena Ledezma RN [facility], [facility].; [facility], [facility]. 08-22-2012 09:12-0400 Body surface area Derived from formula 2.04 m2 Marlena Ledezma RN [facility], [facility].; [facility], [facility]. 08-22-2012 09:12-0400 Body weight 90.27 kg Marlena Ledezma RN [facility], Inc.; [facility], [facility]. 08-22-2012 09:12-0400 Diastolic blood pressure 88 mm[Hg] [facility], [facility]. 08-22-2012 09:12-0400 Heart rate 72 /min Marlena Ledezma RN [facility], [facility], [facility]. 08-22-2012 09:12-0400 Systolic blood pressure 133 mm[Hg] Marlena [facility] 05-02-2012 11:11-0500 Diastolic blood pressure 86 mm[Hg] JI ELIZABETH MD Work Phone: [facility], [facility]. 05-02-2012 11:11-0500 Systolic blood pressure 140 mm[Hg] JI ELIZABETH MD Work Phone: [facility] [employer] [facility], [facility]. 05-02-2012 10:08-0500 Body height 172.72 cm NOLVIA [facility], Inc.; [facility], [facility]. 05-02-2012 10:08-0500 Body mass index (BMI) [Ratio] 29.95 kg/m2 [facility].; [facility] [employer] [facility], [facility]. 05-02-2012 10:08-0500 Body surface area Derived from formula 2.03 m2 [facility].; [facility] 05-02-2012 10:08-0500 Body weight 89.36 kg [facility], [facility].; [facility] [employer] [facility] 05-02-2012 10:08-0500 Diastolic blood pressure 95 mm[Hg] [facility] [employer] [facility].; [facility] [employer] [facility] 05-02-2012 10:08-0500 Heart rate 69 /min [facility], [facility].; [facility] [employer] [facility] 05-02-2012 10:08-0500 Systolic blood pressure 158 mm[Hg] [facility] [employer] [facility], [facility].; [facility] [employer] [facility] 01-11-2012 08:54-0400 Body height 172.72 cm [facility].; [facility] [employer] [facility] 01-11-2012 08:54-0400 Body mass index (BMI) [Ratio] 29.95 kg/m2 [facility] [employer] [facility], ClasesD.; [facility] [employer] [facility], [facility]. 01-11-2012 08:54-0400 Body surface area Derived from formula 2.03 m2 [facility] [employer] [facility], ClasesD.; [facility] [employer] [facility], [facility] 01-11-2012 08:54-0400 Body weight 89.36 kg [facility], [facility].; [facility] [employer] [facility] 01-11-2012 08:54-0400 Diastolic blood pressure 87 mm[Hg] [facility] [employer] [facility], [facility].; [facility] [employer] [facility] 01-11-2012 08:54-0400 Heart rate 73 /min [facility], [facility].; [facility] [employer] [facility] 01-11-2012 08:54-0400 Systolic blood pressure 126 mm[Hg] [facility] [employer] [facility], [facility].; [facility] [employer] [facility] 11-23-2011 13:42-0400 Diastolic blood pressure 80 mm[Hg] JI ELIZABETH MD Work Phone: [facility], [facility] 11-23-2011 13:42-0400 Systolic blood pressure 130 mm[Hg] JI ELIZABETH MD Work Phone: [facility], [facility].; [facility] 11-23-2011 13:35-0400 Body height 172.72 cm [facility] 11-23-2011 13:35-0400 Body mass index (BMI) [Ratio] 29.95 kg/m2 [facility], [facility].; [facility], [facility]. 11-23-2011 13:35-0400 Body surface area Derived from formula 2.03 m2 [facility] [employer] [facility].; [facility], [facility]. 11-23-2011 13:35-0400 Body temperature 98.4 [degF] [facility] lavon [facility], ClasesD.; [facility], [facility]. 11-23-2011 13:35-0400 Body weight 89.36 kg [facility] ly [facility], [facility] 11-23-2011 13:35-0400 Diastolic blood pressure 91 mm[Hg] [facility] [employer] [facility]. 11-23-2011 13:35-0400 Heart rate 85 /min [facility], [facility], [facility]. 11-23-2011 13:35-0400 Systolic blood pressure 150 mm[Hg] [facility] [employer] [facility] 08-24-2011 09:30-0400 Diastolic blood pressure 82 mm[Hg] JI ELIZABETH MD Work Phone: [facility] [employer] [facility].; [facility] 08-24-2011 09:30-0400 Systolic blood pressure 143 mm[Hg] JI ELIZABETH MD Work Phone: [facility], [facility]. 08-24-2011 08:50-0400 Body height 172.72 cm [facility] 08-24-2011 08:50-0400 Body mass index (BMI) [Ratio] 30.56 kg/m2 [facility] 08-24-2011 08:50-0400 Body surface area Derived from formula 2.05 m2 [facility], [facility]. 08-24-2011 08:50-0400 Body temperature 98.5 [degF] [facility] lavon [facility], [facility]. 08-24-2011 08:50-0400 Body weight 91.17 kg [facility], [facility]. 08-24-2011 08:50-0400 Diastolic blood pressure 106 mm[Hg] [facility], [facility]. 08-24-2011 08:50-0400 Heart rate 76 /min [facility], [facility], [facility]. 08-24-2011 08:50-0400 Systolic blood pressure 150 mm[Hg] NOLVIA [facility], [facility], [facility]. 04-27-2011 09:12-0500 Body height 172.72 cm Brenda Boudreaux RN [facility], Inc.; [facility] 04-27-2011 09:12-0500 Body mass index (BMI) [Ratio] 29.95 kg/m2 Brenda Boudreaux RN [facility], [facility] 04-27-2011 09:12-0500 Body surface area Derived from formula 2.03 m2 Brenda Boudreaux RN [facility], [facility] 04-27-2011 09:12-0500 Body temperature 98.3 [degF] Brenda Boudreaux RN Imer Arambula [facility], Inc.; [facility] 04-27-2011 09:12-0500 Body weight 89.36 kg Brenda Boudreaux RN [facility] Tyesha [facility], Inc.; [facility] 04-27-2011 09:12-0500 Diastolic blood pressure 86 mm[Hg] Brenda Boudreaux RN [facility], [facility] 04-27-2011 09:12-0500 Heart rate 78 /min Brenda Buodreaux RN [facility], Inc[facility] 04-27-2011 09:12-0500 Systolic blood pressure 128 mm[Hg] Brenda Boudreaux RN [facility], [facility] 04-06-2011 09:07-0500 Body height 172.72 cm [facility] 04-06-2011 09:07-0500 Body mass index (BMI) [Ratio] 30.11 kg/m2 NOLVIA [facility], [facility] 04-06-2011 09:07-0500 Body surface area Derived from formula 2.04 m2 NOLVIA [facility], [facility] 04-06-2011 09:07-0500 Body temperature 98.6 [degF] NOLVIA [facility], [facility].; [facility] 04-06-2011 09:07-0500 Body weight 89.81 kg N[facility]IA [facility] 04-06-2011 09:07-0500 Diastolic blood pressure 89 mm[Hg] NOLVIA [facility], [facility] 04-06-2011 09:07-0500 Heart rate 77 /min NOLVIA [facility] 04-06-2011 09:07-0500 Systolic blood pressure 133 mm[Hg] NOLVIA [facility], [facility] 12-08-2010 08:54-0400 Body height 172.72 cm NOLVIA [facility] 12-08-2010 08:54-0400 Body mass index (BMI) [Ratio] 29.8 kg/m2 [facility] 12-08-2010 08:54-0400 Body surface area Derived from formula 2.03 m2 [facility], [facility].; [facility] 12-08-2010 08:54-0400 Body weight 88.91 kg NOLVIA [facility] 12-08-2010 08:54-0400 Diastolic blood pressure 83 mm[Hg] NOLVIA [facility] 12-08-2010 08:54-0400 Heart rate 92 /min NOLVIA [facility] 12-08-2010 08:54-0400 Systolic blood pressure 126 mm[Hg] NOLVIA [facility] [employer] [facility], [facility].; [facility] [employer] [facility] 08-11-2010 09:18-0400 Diastolic blood pressure 80 mm[Hg] JI ELIZABETH MD Work Phone: [facility] [employer] [facility], Inc.; [facility] [employer] [facility] 08-11-2010 09:18-0400 Systolic blood pressure 128 mm[Hg] JI ELIZABETH MD Work Phone: [facility] [employer] [facility], [facility] 08-11-2010 08:57-0400 Body height 172.72 cm [facility], [facility] 08-11-2010 08:57-0400 Body mass index (BMI) [Ratio] 30.41 kg/m2 NOLVIA [facility], [facility] 08-11-2010 08:57-0400 Body surface area Derived from formula 2.04 m2 [facility], [facility].; [facility], [facility]. 08-11-2010 08:57-0400 Body weight 90.72 kg [facility] ly [facility], [facility], [facility]. 08-11-2010 08:57-0400 Diastolic blood pressure 97 mm[Hg] [facility]. 08-11-2010 08:57-0400 Heart rate 79 /min [facility] ly [facility], [facility], [facility]. 08-11-2010 08:57-0400 Systolic blood pressure 144 mm[Hg] NOLVIA [facility], [facility].; [facility], [facility]. 07-11-2010 11:17-0500 Body height 172.72 cm Brenda Boudreaux RN [facility], Inc[facility] 07-11-2010 11:17-0500 Body mass index (BMI) [Ratio] 29.95 kg/m2 Brenda Boudreaux RN [facility], [facility].; [facility], [facility]. 07-11-2010 11:17-0500 Body surface area Derived from formula 2.03 m2 Brenda Boudreaux RN [facility], [facility].; [facility] 07-11-2010 11:17-0500 Body temperature 98 [degF] Brenda Boudreaux RN [facility], Inc.; [facility] 07-11-2010 11:17-0500 Body weight 89.36 kg Brenda Boudreaux RN [facility], Inc[facility] 07-11-2010 11:17-0500 Diastolic blood pressure 90 mm[Hg] Brenda Boudreaux RN [facility], [facility] 07-11-2010 11:17-0500 Heart rate 97 /min Brenda Boudreaux RN [facility], Inc[facility] 07-11-2010 11:17-0500 Systolic blood pressure 134 mm[Hg] Brenda Boudreaux RN [facility], [facility] 07-03-2010 10:37-0500 Body height 172.72 cm [facility], [facility], [facility]. 07-03-2010 10:37-0500 Body mass index (BMI) [Ratio] 30.18 kg/m2 [facility], [facility].; [facility] 07-03-2010 10:37-0500 Body surface area Derived from formula 2.04 m2 [facility], [facility].; [facility] 07-03-2010 10:37-0500 Body temperature 98.6 [degF] [facility], Inc[facility]. 07-03-2010 10:37-0500 Body weight 90.[address] [facility], Inc.; [facility] 07-03-2010 10:37-0500 Diastolic blood pressure 96 mm[Hg] [facility], [facility] 07-03-2010 10:37-0500 Heart rate 74 /min [facility], Inc[facility] 07-03-2010 10:37-0500 Systolic blood pressure 156 mm[Hg] [facility], Inc[facility] 04-21-2010 10:19-0500 Diastolic blood pressure 86 mm[Hg] JI ELIZABETH MD Work Phone: [facility], [facility].; [facility] 04-21-2010 10:19-0500 Systolic blood pressure 150 mm[Hg] JI ELIZABETH MD Work Phone: [facility] [employer] [facility], Inc.; [facility] [employer] [facility] 04-21-2010 09:23-0500 Body height 172.72 cm [facility], [facility].; [facility], [facility]. 04-21-2010 09:23-0500 Body mass index (BMI) [Ratio] 30.11 kg/m2 [facility] [employer] [facility], [facility].; [facility], [facility]. 04-21-2010 09:23-0500 Body surface area Derived from formula 2.04 m2 [facility] [employer] [facility].; [facility], [facility]. 04-21-2010 09:23-0500 Body weight 89.81 kg [facility], [facility].; [facility] 04-21-2010 09:23-0500 Diastolic blood pressure 93 mm[Hg] [facility] [employer] [facility], Inc[facility]. 04-21-2010 09:23-0500 Heart rate 78 /min [facility] [employer] [facility], Inc.; [facility] [employer] [facility] [facility] 04-21-2010 09:23-0500 Systolic blood pressure 138 mm[Hg] [facility] [employer] [facility] [employer] [facility] Encounters Encounter Date Encounter Type Care Provider Facility Start: 06-10-2023 End: 06-10-2023 Office outpatient visit 15 minutes MARILYNN LICEA Work Phone: [facility] [employer] [facility], [facility] Start: 04-02-2023 End: 04-02-2023 ambulatory NILDA BOWENS [facility] Start: 03-25-2023 End: 03-25-2023 ambulatory NILDA BOWENS [facility] Start: 12-10-2022 End: 12-10-2022 Office outpatient visit 15 minutes MARILYNN PETESOLACHAD FIELD SALES ASSOCIATE-C Work Phone: [facility] Start: 09-26-2022 End: 09-26-2022 ambulatory MARILYNN PETESOLACHAD [facility] Start: 06-14-2022 End: 06-14-2022 Office outpatient visit 15 minutes MARILYNN PETESOLACARLOER FIELD SALES ASSOCIATE-C [facility] Start: 02-23-2022 End: 02-23-2022 MARILYNN PETESOLATTER FIELD SALES ASSOCIATE-C [facility] Start: 12-22-2021 End: 12-22-2021 MARILYNN RICARDOTETTER FIELD SALES ASSOCIATE-C Work Phone: [facility] [employer] [facility] Start: 12-21-2021 End: 12-21-2021 Office outpatient visit 15 minutes MARILYNN PETESOLATTER FIELD SALES ASSOCIATE-C [facility] Start: 11-23-2021 End: 11-23-2021 MARILYNN PETELINDSAYTETTER FIELD SALES ASSOCIATE-C Work Phone: [facility] [employer] [facility] Start: 10-06-2021 End: 10-06-2021 MARILYNN PETELINDSAYTETTER FIELD SALES ASSOCIATE-C Work Phone: [facility] [employer] [facility] Start: 07-27-2021 End: 07-27-2021 MARILYNN PETELINDSAYTETTER FIELD SALES ASSOCIATE-C Work Phone: [facility] [employer] [facility] Start: 06-22-2021 End: 06-22-2021 Office outpatient visit 15 minutes MARILYNN AZEVEDOTTER FIELD SALES ASSOCIATE-C [facility]: [facility] Start: 12-26-2020 End: 12-26-2020 Office outpatient visit 15 minutes MARILYNN AZEVEDOTTER FIELD SALES ASSOCIATE-C [facility] Start: 11-10-2020 End: 11-10-2020 MARILYNN HOFSTETTER FIELD SALES ASSOCIATE-C [facility] Start: 10-25-2020 End: 10-25-2020 MARILYNN HOFSTETTER FIELD SALES ASSOCIATE-C [facility] Start: 10-17-2020 End: 10-17-2020 MARILYNN HOFSTETTER FIELD SALES ASSOCIATE-C [facility] Start: 10-07-2020 End: 10-07-2020 MARILYNN HOFSTETTER FIELD SALES ASSOCIATE-C [facility] Start: 10-05-2020 End: 10-05-2020 MARILYNN HOFSTETTER FIELD SALES ASSOCIATE-C [facility] Start: 09-21-2020 End: 09-21-2020 MARILYNN HOFSTETTER FIELD SALES ASSOCIATE-C [facility] Start: 09-19-2020 End: 09-19-2020 Office outpatient visit 15 minutes MARILYNN HOFSTETTER FIELD SALES ASSOCIATE-C [facility] Start: 09-05-2020 End: 09-05-2020 Office outpatient visit 15 minutes MARILYNN HOFSTETTER FIELD SALES ASSOCIATE-C [facility]: [facility] Start: 07-01-2020 End: 07-01-2020 MARILYNN HOFSTETTER FIELD SALES ASSOCIATE-C [facility] Start: 06-30-2020 End: 06-30-2020 Office outpatient visit 25 minutes MARILYNN HOFSTETTER FIELD SALES ASSOCIATE-C [facility]: [facility] Start: 04-27-2020 End: 04-27-2020 MARILYNN HOFSTETTER FIELD SALES ASSOCIATE-C [facility] Start: 04-25-2020 End: 04-26-2020 MARILYNN HOFSTETTER FIELD SALES ASSOCIATE-C [facility] Start: 04-21-2020 End: 04-21-2020 MARILYNN HOFSTETTER FIELD SALES ASSOCIATE-C [facility] Phone: [facility] Start: 04-21-2020 End: 04-21-2020 Office outpatient visit 15 minutes MARILYNN HOFSTETTER FIELD SALES ASSOCIATE-C [facility]: [facility] Start: 03-24-2020 End: 03-24-2020 Office outpatient visit 15 minutes MARILYNN HOFSTETTER FIELD SALES ASSOCIATE-C [facility]: [facility] Start: 03-16-2020 End: 03-16-2020 MARILYNN HOFSTETTER FIELD SALES ASSOCIATE-C [facility] Start: 02-01-2020 End: 02-01-2020 MARILYNN HOFSTETTER FIELD SALES ASSOCIATE-C [facility] Start: 12-31-2019 End: 12-31-2019 Office outpatient visit 15 minutes MARILYNN HOFSTETTER FIELD SALES ASSOCIATE-C [facility]: [facility] Start: 11-13-2019 End: 11-13-2019 MARILYNN HOLINDSAYTETTER FIELD SALES ASSOCIATE-C [facility] Start: 09-03-2019 End: 09-03-2019 MARILYNN HOFSTETTER FIELD SALES ASSOCIATE-C [facility] Start: 08-10-2019 End: 08-10-2019 MARILYNN HOFSTETTER FIELD SALES ASSOCIATE-C [facility] Start: 08-06-2019 End: 08-06-2019 Office outpatient visit 15 minutes MARILYNN HOFSTETTER FIELD SALES ASSOCIATE-C [facility] Phone: [facility] Start: 07-03-2019 End: 07-03-2019 MARILYNN HOFSTETTER FIELD SALES ASSOCIATE-C [facility] Start: 07-02-2019 End: 07-02-2019 Office outpatient visit 15 minutes MARILYNN HOFSTETTER FIELD SALES ASSOCIATE-C Work Phone: [facility] [employer] [facility] Start: 03-24-2019 End: 03-24-2019 MARILYNN HOLINDSAYTETTER FIELD SALES ASSOCIATE-C Work Phone: [facility] [employer] [facility] Start: 03-13-2019 End: 03-13-2019 Office outpatient visit 15 minutes MARILYNN HOFSTETTER FIELD SALES ASSOCIATE-C Work Phone: [facility] [employer] [facility] Start: 01-02-2019 End: 01-02-2019 Office outpatient visit 15 minutes MARILYNN HOFSTETTER FIELD SALES ASSOCIATE-C Work Phone: [facility] [employer] [facility] Start: 10-31-2018 End: 10-31-2018 Office outpatient visit 15 minutes MARILYNN BONILLAER FIELD SALES ASSOCIATE-C Work Phone: [facility] Start: 10-06-2018 End: 10-06-2018 MARILYNN BONILLAER FIELD SALES ASSOCIATE-C Work Phone: [facility] [employer] [facility] Start: 2018 End: 2018 Office outpatient visit 15 minutes MARILYNN BONILLAER FIELD SALES ASSOCIATE-C Work Phone: [facility] Start: 07-26-2018 End: 07-26-2018 MARILYNN HOSOLATTER FIELD SALES ASSOCIATE-C [facility] Phone: [facility] Start: 07-25-2018 End: 07-25-2018 Office outpatient visit 15 minutes MARILYNN BONILLAER FIELD SALES ASSOCIATE-C Work Phone: [facility] [employer]. Start: 06-27-2018 End: 06-27-2018 Office outpatient visit 15 minutes MARILYNN AZEVEDOTTER FIELD SALES ASSOCIATE-C Work Phone: [facility] Start: 06-25-2018 End: 06-25-2018 MARILYNN AZEVEDOTTER FIELD SALES ASSOCIATE-C Work Phone: [facility], [employer]. Start: 06-06-2018 End: 06-06-2018 Office outpatient visit 15 minutes MARILYNN AZEVEDOTTER FIELD SALES ASSOCIATE-C Work Phone: [facility] [employer] [facility] Start: 06-06-2018 End: 06-06-2018 Patient encounter status MARILYNN BONILLAER FIELD SALES ASSOCIATE-C Work Phone: [facility] [employer] [facility] [employer] [facility] Start: 04-14-2018 End: 04-14-2018 Office outpatient visit 15 minutes MARILYNN AZEVEDOTTER FIELD SALES ASSOCIATE-C Work Phone: [facility] Start: 02-18-2018 Patient encounter JIM Long acility:[facility] Start: 01-27-2018 End: 01-27-2018 MARILYNN HOFSTETTER FIELD SALES ASSOCIATE-C Work Phone: [facility] [employer] [facility] Start: 01-20-2018 End: 01-22-2018 MARILYNN HOFSTETTER FIELD SALES ASSOCIATE-C Work Phone: [facility] [employer]. Start: 12-28-2017 End: 12-28-2017 MARILYNN HOFSTETTER FIELD SALES ASSOCIATE-C Work Phone: [facility] [employer]. Start: 12-27-2017 End: 12-27-2017 Office outpatient visit 25 minutes MARILYNN HOFSTETTER FIELD SALES ASSOCIATE-C Work Phone: [facility] [employer] [facility] Start: 11-19-2017 End: 11-19-2017 Patient [facility] Start: 11-04-2017 End: 11-04-2017 MARILYNN HOFSTETTER FIELD SALES ASSOCIATE-C Work Phone: [facility] [employer] [facility] Start: 11-04-2017 End: 11-04-2017 Evaluation and management of inpatient JULIAN Menjivar [facility] Facility:[facility] Start: 11-04-2017 Patient encounter [facility] Start: 11-01-2017 End: 11-01-2017 MARILYNN HOFSTETTER FIELD SALES ASSOCIATE-C Work Phone: [facility] [employer]. Start: 10-28-2017 End: 10-28-2017 Patient encounter [facility] Start: 10-18-2017 End: 10-18-2017 Office outpatient visit 40 minutes MARILYNN HOFSTETTER FIELD SALES ASSOCIATE-C [facility] Start: 10-18-2017 End: 10-18-2017 Preoperative state MARILYNN HOFSTETTER FIELD SALES ASSOCIATE-C Work Phone: [facility] [employer] [facility] [employer]. Start: 09-03-2017 Patient encounter [facility] Start: 08-23-2017 End: 08-23-2017 Patient encounter JULIAN Menjivar [facility] Facility:[facility] Start: 06-28-2017 End: 06-28-2017 Office outpatient visit 25 minutes MARILYNN PETEFSTETTER FIELD SALES ASSOCIATE-C Work Phone: [facility] [employer] [facility] Start: 06-24-2017 Patient encounter JIM Long acility:[facility] Start: 06-12-2017 End: 06-12-2017 Patient encounter JIM CARRILLO Facility:[facility] Start: 06-01-2017 End: 06-01-2017 MARILYNN HOFSTETTER FIELD SALES ASSOCIATE-C Work Phone: [facility] [employer] [facility] Start: 04-26-2017 End: 04-26-2017 MARILYNN HOFSTETTER FIELD SALES ASSOCIATE-C Work Phone: [facility] [employer]. Start: 04-05-2017 End: 04-05-2017 Office outpatient visit 15 minutes MARILYNN PETEFSTETTER FIELD SALES ASSOCIATE-C Work Phone: [facility] [employer] [facility] Start: 03-15-2017 End: 03-15-2017 MARILYNN HOFSTETTER FIELD SALES ASSOCIATE-C Work Phone: [facility] [employer] [facility] Start: 12-28-2016 End: 12-28-2016 MARILYNN HOFSTETTER FIELD SALES ASSOCIATE-C Work Phone: [facility] [employer] [facility] Start: 12-28-2016 End: 12-28-2016 Office outpatient visit 25 minutes MARILYNN PETEFSTETTER FIELD SALES ASSOCIATE-C Work Phone: [facility] [employer]. Start: 09-03-2016 End: 09-03-2016 MARILYNN AZEVEDOTTER FIELD SALES ASSOCIATE-C Work Phone: [facility] Start: 08-31-2016 End: 08-31-2016 Office outpatient visit 25 minutes MARILYNN AZEVEDOTTER FIELD SALES ASSOCIATE-C Work Phone: [facility] Start: 06-08-2016 End: 06-08-2016 Office outpatient visit 15 minutes MARILYNN HOLINDSAYTETTER FIELD SALES ASSOCIATE-C Work Phone: [facility] Start: 04-02-2016 End: 04-02-2016 MARILYNN HOLINDSAYTETTER FIELD SALES ASSOCIATE-C [facility] Start: 03-06-2016 End: 03-06-2016 MARILYNN HOFSTETTER FIELD SALES ASSOCIATE-C Work Phone: [facility] Start: 03-02-2016 End: 03-02-2016 Office outpatient visit 25 minutes MARILYNN SILVATETTER FIELD SALES ASSOCIATE-C Work Phone: [facility] Start: 10-15-2015 End: 10-15-2015 MARILYNN HOLINDSAYTETTER FIELD SALES ASSOCIATE-C Work Phone: [facility] [employer] [facility] Start: 10-14-2015 End: 10-14-2015 Office outpatient visit 25 minutes MARILYNN AZEVEDOTTER FIELD SALES ASSOCIATE-C Work Phone: [facility] [employer] [facility], [employer]. Start: 10-04-2015 End: 10-04-2015 MARILYNN HOLINDSAYTETTER FIELD SALES ASSOCIATE-C Work Phone: [facility] [employer] [facility] Start: 08-03-2015 End: 08-03-2015 MARILYNN HOFSTETTER FIELD SALES ASSOCIATE-C Work Phone: [facility] [employer] [facility], [employer]. Start: 06-17-2015 End: 06-17-2015 Office outpatient visit 25 minutes MARILYNN BONILLAER FIELD SALES ASSOCIATE-C [facility] Start: 05-13-2015 End: 05-13-2015 MARILYNN BONILLAER FIELD SALES ASSOCIATE-C Work Phone: [facility] [employer]. Start: 04-01-2015 End: 04-01-2015 MARILYNN BONILLAER FIELD SALES ASSOCIATE-C Work Phone: [facility], [employer]. Start: 02-18-2015 End: 02-18-2015 Office outpatient visit 25 minutes MARILYNN BONILLAER FIELD SALES ASSOCIATE-C [facility] Start: 11-01-2014 End: 11-01-2014 MARILYNN AZEVEDOTTER FIELD SALES ASSOCIATE-C Work Phone: [facility] Start: 10-18-2014 End: 10-18-2014 MARILYNN AZEVEDOTTER FIELD SALES ASSOCIATE-C Work Phone: [facility] [employer] [facility] Start: 10-15-2014 End: 10-15-2014 Office outpatient visit 25 minutes MARILYNN BONILLAER FIELD SALES ASSOCIATE-C Work Phone: [facility] [employer]. Start: 07-30-2014 End: 07-30-2014 MARILYNN AZEVEDOTTER FIELD SALES ASSOCIATE-C [facility] Phone[facility] Start: 06-04-2014 End: 06-04-2014 Office outpatient visit 40 minutes MARILYNN AZEVEDOTTER FIELD SALES ASSOCIATE-C Work Phone: [facility] [employer] [facility] Start: 06-04-2014 End: 06-04-2014 Routine gynecological examination MARILYNN BONILLAER FIELD SALES ASSOCIATE-C Work Phone: [facility] [employer] [facility] [place] [employer] [facility] [employer] [facility] Start: 06-04-2014 End: 06-04-2014 MARILYNN SILVATETTER FIELD SALES ASSOCIATE-C [facility] Phone: [facility] Start: 05-03-2014 End: 05-03-2014 Office outpatient visit 15 minutes MARILYNN AZEVEDOTTER FIELD SALES ASSOCIATE-C [facility] Start: 03-30-2014 End: 03-30-2014 MARILYNN AZEVEDOTTER FIELD SALES ASSOCIATE-C [facility] Phone: [facility] Start: 03-26-2014 End: 03-26-2014 MARILYNN HOLINDSAYTETTER FIELD SALES ASSOCIATE-C [facility] Phone: [facility] Start: 03-26-2014 End: 03-26-2014 Office outpatient visit 40 minutes MARILYNN SILVATETTER FIELD SALES ASSOCIATE-C [facility]: [facility] Start: 03-26-2014 End: 03-26-2014 Repair venous blockage MARILYNN HOLINDSAYTETTER FIELD SALES ASSOCIATE-C Work Phone: [facility] [employer] [facility] [place] [employer] [facility] [employer] [facility] Start: 03-22-2014 End: 03-22-2014 Office outpatient visit 15 minutes MARILYNN AZEVEDOTTER FIELD SALES ASSOCIATE-C Work Phone: [facility] [employer] [facility] Start: 02-12-2014 End: 02-12-2014 Office outpatient visit 15 minutes MARILYNN AZEVEDOTTER FIELD SALES ASSOCIATE-C Work Phone: [facility] [employer] [facility] Start: 01-29-2014 End: 01-29-2014 MARILYNN HOLINDSAYTETTER FIELD SALES ASSOCIATE-C Work Phone: [facility] [employer] [facility] Start: 01-22-2014 End: 01-22-2014 MARILYNN HOLINDSAYTETTER FIELD SALES ASSOCIATE-C Work Phone: [place] [employer] [facility] [employer] [facility] Start: 11-27-2013 End: 11-27-2013 MARILYNN HOFSTETTER FIELD SALES ASSOCIATE-C Work Phone: [facility] [employer] Start: 11-27-2013 End: 11-27-2013 MARILYNN BEGUM FIELD SALES ASSOCIATE-C Work Phone: [facility] Start: 10-09-2013 End: 10-09-2013 MARILYNN BONILLAER FIELD SALES ASSOCIATE-C Work Phone: [facility] Start: 10-06-2013 End: 10-06-2013 MARILYNN BONILLAER FIELD SALES ASSOCIATE-C Work Phone: [facility] Start: 09-30-2013 End: 09-30-2013 MARILYNN AZEVEDOTTER FIELD SALES ASSOCIATE-C Work Phone: [facility], [employer]. Start: 09-29-2013 End: 09-29-2013 MARILYNN AZEVEDOTTER FIELD SALES ASSOCIATE-C Work Phone: [facility], [employer]. Start: 09-25-2013 End: 09-25-2013 MARILYNN AZEVEDOTTER FIELD SALES ASSOCIATE-C Work Phone: [facility] Start: 07-24-2013 End: 07-24-2013 MARILYNN AZEVEDOTTER FIELD SALES ASSOCIATE-C Work Phone: [facility] [employer] Start: 05-18-2013 End: 05-18-2013 MARILYNN AZEVEDOTTER FIELD SALES ASSOCIATE-C Work Phone: [facility] [employer]. Start: 05-15-2013 End: 05-15-2013 Routine gynecological examination MARILYNN BONILLAER FIELD SALES ASSOCIATE-C Work Phone: [facility] [employer]. Start: 05-15-2013 End: 05-15-2013 MARILYNN AZEVEDOTTER FIELD SALES ASSOCIATE-C Work Phone: [facility] [employer]. Start: 03-30-2013 End: 03-30-2013 MARILYNN HOLINDSAYTETTER FIELD SALES ASSOCIATE-C Work Phone: [facility] Start: 03-30-2013 End: 03-30-2013 MARILYNN HOFSTETTER FIELD SALES ASSOCIATE-C Work Phone: [facility] Start: 03-27-2013 End: 03-27-2013 MARILYNN HOFSTETTER FIELD SALES ASSOCIATE-C Work Phone: [facility] Start: 02-13-2013 End: 02-13-2013 MARILYNN HOFSTETTER FIELD SALES ASSOCIATE-C Work Phone: [facility] Start: 02-09-2013 End: 02-09-2013 MARILYNN HOFSTETTER FIELD SALES ASSOCIATE-C Work Phone: [facility], [employer]. Start: 02-02-2013 End: 02-02-2013 MARILYNN HOFSTETTER FIELD SALES ASSOCIATE-C Work Phone: [facility] Start: 01-26-2013 End: 01-26-2013 MARILYNN HOFSTETTER FIELD SALES ASSOCIATE-C Work Phone: [facility] Start: 12-26-2012 End: 12-26-2012 MARILYNN HOFSTETTER FIELD SALES ASSOCIATE-C Work Phone: [facility] Start: 08-22-2012 End: 08-22-2012 MARILYNN HOFSTETTER FIELD SALES ASSOCIATE-C Work Phone: [facility] Start: 08-08-2012 End: 08-08-2012 MARILYNN HOFSTETTER FIELD SALES ASSOCIATE-C Work Phone: [facility] [employer] Start: 05-05-2012 End: 05-05-2012 MARILYNN HOFSTETTER FIELD SALES ASSOCIATE-C [facility] Start: 05-02-2012 End: 05-02-2012 Routine gynecological examination MARILYNN AZEVEDOCARLOER FIELD SALES ASSOCIATE-C Work Phone: [facility] Start: 05-02-2012 End: 05-02-2012 MARILYNN HOFSTETTER FIELD SALES ASSOCIATE-C [facility] Phone: [facility] Start: 04-12-2012 End: 04-12-2012 MARILYNN HOFSTETTER FIELD SALES ASSOCIATE-C Work Phone: [facility] Start: 04-11-2012 End: 04-11-2012 MARILYNN HOFSTETTER FIELD SALES ASSOCIATE-C Work Phone: [facility] Start: 04-02-2012 End: 04-02-2012 MARILYNN HOFSTETTER FIELD SALES ASSOCIATE-C Work Phone: [facility] Start: 01-11-2012 End: 01-11-2012 MARILYNN HOFSTETTER FIELD SALES ASSOCIATE-C Work Phone: [facility] Start: 11-23-2011 End: 11-23-2011 MARILYNN HOFSTETTER FIELD SALES ASSOCIATE-C [facility] Phone: [facility] Start: 08-24-2011 End: 08-24-2011 MARILYNN HOFSTETTER FIELD SALES ASSOCIATE-C [facility] Phone: [facility] Start: 07-23-2011 End: 07-23-2011 MARILYNN HOFSTETTER FIELD SALES ASSOCIATE-C Work Phone: [facility] [employer] Start: 05-03-2011 End: 05-03-2011 MARILYNN HOFSTETTER FIELD SALES ASSOCIATE-C [facility] Phone: [facility] Start: 05-02-2011 End: 05-02-2011 MARILYNN HOFSTETTER FIELD SALES ASSOCIATE-C Work Phone: [facility] Start: 04-27-2011 End: 04-27-2011 Routine general medical examination at a health care facility MARILYNN BEGUM FIELD SALES ASSOCIATE-C Work Phone: [facility] Start: 04-27-2011 End: 04-27-2011 Routine gynecological examination MARILYNN BONILLAER FIELD SALES ASSOCIATE-C Work Phone: [facility] Start: 04-27-2011 End: 04-27-2011 MARILYNN AZEVEDOTTER FIELD SALES ASSOCIATE-C Work Phone: [facility] Start: 04-06-2011 End: 04-06-2011 MARILYNN AZEVEDOTTER FIELD SALES ASSOCIATE-C Work Phone: [facility] Start: 04-02-2011 End: 04-02-2011 MARILYNN AZEVEDOTTER FIELD SALES ASSOCIATE-C Work Phone: [facility] Start: 03-28-2011 End: 03-28-2011 MARILYNN AZEVDEOTTER FIELD SALES ASSOCIATE-C Work Phone: [facility] Start: 03-02-2011 End: 03-02-2011 MARILYNN AZEVEDOTTER FIELD SALES ASSOCIATE-C Work Phone: [facility] Start: 02-09-2011 End: 02-09-2011 MARILYNN HOLINDSAYTETTER FIELD SALES ASSOCIATE-C Work Phone: [facility] Start: 01-19-2011 End: 01-19-2011 MARILYNN HOFSTETTER FIELD SALES ASSOCIATE-C Work Phone: [facility] [employer] [facility] Start: 12-08-2010 End: 12-08-2010 MARILYNN HOFSTETTER FIELD SALES ASSOCIATE-C Work Phone: [facility] Start: 11-08-2010 End: 11-08-2010 MARILYNN HOFSTETTER FIELD SALES ASSOCIATE-C Work Phone: [facility] Start: 08-12-2010 End: 08-12-2010 MARILYNN HOFSTETTER FIELD SALES ASSOCIATE-C Work Phone: [facility] Start: 08-11-2010 End: 08-11-2010 MARILYNN HOFSTETTER FIELD SALES ASSOCIATE-C Work Phone: [facility] Start: 07-11-2010 End: 07-11-2010 MARILYNN HOFSTETTER FIELD SALES ASSOCIATE-C Work Phone: [facility] Start: 07-03-2010 End: 07-03-2010 MARILYNN HOFSTETTER FIELD SALES ASSOCIATE-C Work Phone: [facility] Start: 06-19-2010 End: 06-19-2010 MARILYNN HOFSTETTER FIELD SALES ASSOCIATE-C Work Phone: [facility] Start: 04-21-2010 End: 04-21-2010 MARILYNN HOFSTETTER FIELD SALES ASSOCIATE-C Work Phone: [facility] Start: 04-15-2010 End: 04-15-2010 MARILYNN HOFSTETTER FIELD SALES ASSOCIATE-C Work Phone: [facility] Start: 04-14-2010 End: 04-14-2010 MARILYNN HOFSTETTER FIELD SALES ASSOCIATE-C Work Phone: [facility] Start: 04-11-2010 End: 04-11-2010 MARILYNN HOFSTETTER FIELD SALES ASSOCIATE-C Work Phone: [facility] Start: 04-07-2010 End: 04-07-2010 MARILYNN HOFSTETTER FIELD SALES ASSOCIATE-C [facility] Start: 03-31-2010 End: 03-31-2010 MARILYNN HOFSTETTER FIELD SALES ASSOCIATE-C [facility] Start: 03-29-2010 End: 03-31-2010 MARILYNN HOFSTETTER FIELD SALES ASSOCIATE-C [facility] Start: 03-28-2010 End: 03-28-2010 MARILYNN HOFSTETTER FIELD SALES ASSOCIATE-C [facility] Start: 03-27-2010 End: 03-27-2010 MARILYNN HOFSTETTER FIELD SALES ASSOCIATE-C [facility] Start: 03-06-2010 End: 03-06-2010 MARILYNN HOLINDSAYTETTER FIELD SALES ASSOCIATE-C [facility] Start: 02-15-2010 End: 02-15-2010 MARILYNN HONineSixFiveTETTER FIELD SALES ASSOCIATE-C Work Phone: [facility] Routine general medi milli examination at a [facility] JI ELIZABETH MD [facility]. Procedures Date Procedure Procedure Detail Performing Clinician Start: 06-10-2023 End: 06-10-2023 Dischrg meds reconciled w/current med list MARILYNN BEGUM FIELD SALES ASSOCIATE-C Work Phone: Start: 12-10-2022 End: 12-10-2022 Dischrg meds reconciled w/current med list MARILYNN BEGUM FIELD SALES ASSOCIATE-C Work Phone: Start: 06-14-2022 End: 06-14-2022 Dischrg meds reconciled w/current med list MARILYNN M HOFSTETTER FIELD SALES ASSOCIATE-C Work Phone: Start: 12-21-2021 End: 12-21-2021 Dischrg meds reconciled w/current med list MARILYNN Tapia RICARDOTETTER FIELD SALES ASSOCIATE-C Work Phone: Start: 06-22-2021 End: 06-22-2021 Dischrg meds reconciled w/current med list MARILYNN Tapia RICARDOTETTER FIELD SALES ASSOCIATE-C Work Phone: Start: 06-22-2021 End: 06-22-2021 Removal impacted cerumen irrigation/lvg unilat MARILYNN Tapia HOFSTETTER FIELD SALES ASSOCIATE-C Work Phone: Start: 03-15-2021 End: 03-15-2021 Vaccination given MARILYNN Tapia HOLINDSAYTETTER FIELD SALES ASSOCIATE-C Work Phone: Start: 12-26-2020 End: 12-26-2020 Dischrg meds reconciled w/current med list MARILYNN Tapia RICARDOTETTER FIELD SALES ASSOCIATE-C Work Phone: Start: 12-26-2020 End: 12-26-2020 MARILYNN Tapia SHY FIELD SALES ASSOCIATE-C Work Phone: Start: 09-19-2020 End: 09-19-2020 Dischrg meds reconciled w/current med list MARILYNN Tapia RICARDOTETTER FIELD SALES ASSOCIATE-C Work Phone: Start: 09-05-2020 End: 09-05-2020 Dischrg meds reconciled w/current med list Naya ANDREW MD Work Phone: Start: 06-30-2020 End: 06-30-2020 Dischrg meds reconciled w/current med list MARILYNN Willie BEGUM FIELD SALES ASSOCIATE-C Work Phone: Start: 04-21-2020 End: 04-21-2020 Dischrg meds reconciled w/current med list MARILYNN Willie BEGUM FIELD SALES ASSOCIATE-C Work Phone: Start: 03-24-2020 End: 03-24-2020 Dischrg meds reconciled w/current med list MARILYNN Tapia CHADER FIELD SALES ASSOCIATE-C Work Phone: Start: 12-31-2019 End: 12-31-2019 Dischrg meds reconciled w/current med list MARILYNN Tapia ROBERTO CARLOSTTER FIELD SALES ASSOCIATE-C Work Phone: Start: 08-06-2019 End: 08-06-2019 Dischrg meds reconciled w/current med list MARILYNN Tapia HOLINDSAYTETTER FIELD SALES ASSOCIATE-C Work Phone: Start: 08-06-2019 End: 08-06-2019 Tangential biopsy skin single lesion MARILYNN Willie BEGUM FIELD SALES ASSOCIATE-C Work Phone: Start: 07-02-2019 End: 07-02-2019 Dischrg meds reconciled w/current med list MARILYNN Tapia SHY FIELD SALES ASSOCIATE-C Work Phone: Start: 03-13-2019 End: 03-13-2019 Dischrg meds reconciled w/current med list GEN BARNES MD Work Phone: Start: 01-02-2019 End: 01-02-2019 Dischrg meds reconciled w/current med list MARILYNN Willie BONILLAER FIELD SALES ASSOCIATE-C Work Phone: Start: 10-31-2018 End: 10-31-2018 Dischrg meds reconciled w/current med list MARILYNN Tapia SHY FIELD SALES ASSOCIATE-C Work Phone: Start: 2018 End: 2018 Dischrg meds reconciled w/current med list MARILYNN Willie BEGUM FIELD SALES ASSOCIATE-C Work Phone: Start: 2018 End: 2018 MARILYNN BEGUM FIELD SALES ASSOCIATE-C Work Phone: Start: 2018 End: 2018 Behav assmt w/score & docd/stand instrument MARILYNN Willie BEGUM FIELD SALES ASSOCIATE-C Work Phone: Start: 07-25-2018 End: 07-25-2018 Dischrg meds reconciled w/current med list JI ELIZABETH MD Work Phone: Start: 06-27-2018 End: 06-27-2018 Dischrg meds reconciled w/current med list JI ELIZABETH MD Work Phone: Start: 06-06-2018 End: 06-06-2018 Dischrg meds reconciled w/current med list JI ELIZABETH MD Work Phone: Start: 06-06-2018 End: 06-25-2018 Mri spinal canal lumbar w/o contrast material JI ELIZABETH MD Work Phone: Start: 06-06-2018 End: 06-06-2018 MARILYNN BEGUM FIELD SALES ASSOCIATE-C Work Phone: Start: 06-06-2018 End: 06-06-2018 Falls risk assessment documented JI ELIZABETH MD Work Phone: Start: 04-14-2018 End: 04-14-2018 Dischrg meds reconciled w/current med list R GEN ANDREW MD Work Phone: Start: 12-27-2017 End: 12-27-2017 Arthrocentesis aspir&/inj major jt/bursa w/o us JI ELIZABETH MD Work Phone: Start: 12-27-2017 End: 12-27-2017 Falls risk assessment documented JI ELIZABETH MD Work Phone: Start: 04-26-2017 End: 04-26-2017 MARILYNN BEGUM FIELD SALES ASSOCIATE-C Work Phone: Start: 08-31-2016 End: 08-31-2016 Falls risk assessment documented JI ELIZABETH MD Work Phone: Start: 03-02-2016 End: 04-02-2016 Mammogram, screening JI ELIZABETH MD Work Phone: Start: 02-18-2015 End: 04-01-2015 Mammogram, screening JI ELIZABETH MD Work Phone: Start: 03-26-2014 End: 03-26-2014 Ecg routine ecg w/least 12 lds w/i&r JI ELIZABETH MD Work Phone: Start: 01-29-2014 End: 01-29-2014 Destruction benign lesions up to 14 JI ELIZABETH MD Work Phone: Start: 05-15-2013 End: 05-15-2013 Obtaining screen pap smear JI MORALES MD Work Phone: Start: 08-22-2012 End: 08-22-2012 Therapeutic prophylactic/dx injection subq/im JI ELIZABETH MD Work Phone: Start: 08-22-2012 End: 08-22-2012 Triamcinolone acet inj NOS JI MORALES MD Work Phone: Start: 05-02-2012 End: 05-02-2012 Obtaining screen pap smear JI MORALES MD Work Phone: Start: 08-24-2011 End: 08-24-2011 Therapeutic prophylactic/dx injection subq/im JI ELIZABETH MD Work Phone: Start: 08-24-2011 End: 08-24-2011 Triamcinolone acet inj NOS JI MORALES MD Work Phone: Start: 08-11-2010 End: 08-11-2010 Arthrocentesis aspir&/inj major jt/bursa w/o us JI ELIZABETH MD Work Phone: Start: 04-05-2008 End: 04-05-2008 MARILYNN ANTON-C Work Phone: Bone density scan MARILYNN ANTON-Tyson Work Phone: Cataract extraction and insertion of intraocular lens MARILYNN ANTON-Tyson Work Phone: Dilation and curetta ge of uterus MARILYNN M HOFSTETTER FIELD SALES ASSOCIATE-C Work Phone: Ligation of fallopian tube W SRIKANTH Tapia HOFSTETTER FIELD SALES ASSOCIATE-C Work Phone: Mammography MARILYNN LARA MAITE FIELD SALES ASSOCIATE-C Work Phone: Microscopic examinat ion of cervical Papanicolaou smear MARILYNN Tapia HOSOLATTER FIELD SALES ASSOCIATE-C Work Phone: Repair of inguinal hernia WH MARV Tapia HOLINDSAYTETTER FIELD SALES ASSOCIATE-C Work Phone: Replacement of total knee joint MARILYNN Tapia HOSOLATTER FIELD SALES ASSOCIATE-C Work Phone: MARILYNN LARA MAITE FIELD SALES ASSOCIATE-C Work Phone: MARILYNN LARA MAITE FIELD SALES ASSOCIATE-C Work Phone: MARILYNN LARA MAITE FIELD SALES ASSOCIATE-C Work Phone: Plan of Treatment Date Care Activity Detail Author Start: 12-16-2023 [facility] Start: 06-22-2021 [facility] Start: 12-26-2020 [facility]; [facility] Start: 10-14-2020 Assay [facility] parathormone E [facility]; [facility]. Start: 10-14-2020 Calcium [facility]; [facility]. Start: 09-19-2020 [facility]; [facility] Start: 09-05-2020 Dup-scan xtr veins unilateral/limited study [facility]; [facility] Work Phone: Start: 06-30-2020 [facility]; [facility]. Start: 12-31-2019 [facility] Start: 08-06-2019 [facility] [employer] [facility] Start: 07-02-2019 [facility] Family [facility].; [facility] Start: 03-13-2019 [facility] [employer] [facility].; [facility] Start: 01-02-2019 [facility] Start: 10-31-2018 [facility] [employer] [facility].; [facility] Start: 07-25-2018 [facility] [employer] [facility].; [facility] [employer] [facility] Start: 06-27-2018 [facility] [employer] [facility].; [facility] Start: 06-06-2018 [facility] [employer] [facility].; [facility] Start: 04-14-2018 [facility] [employer] [facility].; [facility] Start: 06-28-2017 [facility] [employer] [facility], [facility].; [facility] [employer] [facility] Start: 04-05-2017 [employer] [facility].; [facility] Start: 12-28-2016 Im adm prq id subq/i m njxs ea [facility] [employer] [facility], [facility].; [facility] Start: 12-28-2016 [facility] [employer] [facility] Start: 08-31-2016 [facility] [employer] [facility] Start: 06-08-2016 [employer] [facility].; [facility] [employer] [facility] Start: 03-02-2016 [employer] [facility]. Start: 10-14-2015 [facility]. Start: 02-18-2015 [facility], [facility].; [facility] Start: 10-15-2014 Dup-scan xtr veins unilateral/limited study [facility]; [facility]. Start: 02-12-2014 Iiv4 vacc split viru s 0.5 ml dos for im use [facility].; [facility]. Start: 01-22-2014 Mammogram, screening [facility].; [facility]. Start: 01-22-2014 [facility], [facility].; [facility]. Start: 09-25-2013 X-ray exam of hips [facility]; [facility]. Start: 12-26-2012 Mammogram, screening [facility].; [facility] Start: 12-26-2012 [facility]. Start: 08-22-2012 [facility] Start: 01-11-2012 Mammogram, screening [facility].; [facility] Start: 01-11-2012 [facility] [employer] [facility].; [facility] Start: 01-11-2012 Basic metabolic pane l calcium total [facility].; [facility] Start: 11-23-2011 [facility] [employer] [facility].; [facility] Start: 08-24-2011 [facility] [employer] [facility].; [facility] Start: 04-27-2011 [facility] [employer] [facility] Start: 04-06-2011 [facility]; [facility] Start: 03-02-2011 Mammogram, screening [facility]; [facility]; [facility].; [facility] Immunizations Immunization Date Immunization Notes Care Provider Fa bladimir 02-03-2023 influenza, injectabl e, quadrivalent, contains preservative MARILYNN HOFSTETTER FIELD SALES ASSOCIATE-C Work Phone: [facility].; [facility] 02-03-2022 MARILYNN [employer]TET TER FIELD SALES ASSOCIATE-C Work Phone: [facility].; [facility]. 03-15-2021 MARILYNN [employer]TET TER FIELD SALES ASSOCIATE-C Work Phone: [facility].; [facility]. 07-26-2020 MARILYNN [employer]TET TER FIELD SALES ASSOCIATE-C Work Phone: [facility].; [facility]. 07-05-2020 MARILYNN [employer]TET TER FIELD SALES ASSOCIATE-C Work Phone: [facility].; [facility]. 03-24-2020 influenza virus vacc ine, unspecified formulation MARILYNN HOFSTETTER FIELD SALES ASSOCIATE-C Work Phone: [facility].; [facility]. 12-28-2016 influenza virus vacc ine, unspecified formulation MARILYNN HOFSTETTER FIELD SALES ASSOCIATE-C Work Phone: [facility].; [facility]. 12-28-2016 MARILYNN HOFSTET TER FIELD SALES ASSOCIATE-C Work Phone: [facility].; [facility] 12-28-2016 pneumococcal conjuga te vaccine, 13 valent MARILYNN HOFSTETTER FIELD SALES ASSOCIATE-C Work Phone: [facility] 12-28-2016 influenza, injectabl e, quadrivalent, contains preservative MARILYNN HOFSTETTER FIELD SALES ASSOCIATE-C Work Phone: [facility].; [facility] 03-02-2016 unknown vaccine or immune globulin MARILYNN HOFSTETTER FIELD SALES ASSOCIATE-C Work Phone: [facility].; [facility] 03-02-2016 influenza, injectabl e, quadrivalent, contains preservative MARILYNN HOFSTETTER FIELD SALES ASSOCIATE-C Work Phone: [facility] Hospital[facility]; [facility] 02-18-2015 unknown vaccine or immune globulin MARILYNN HOFSTETTER FIELD SALES ASSOCIATE-C Work Phone: [facility]; [facility] 02-18-2015 influenza, injectabl e, quadrivalent, contains preservative MARILYNN HOFSTETTER FIELD SALES ASSOCIATE-C Work Phone: [facility].; [facility] 02-12-2014 MARILYNN HOFSTET TER FIELD SALES ASSOCIATE-C Work Phone: [facility].; [facility] 03-06-2012 influenza, seasonal, injectable MARILYNN HOFSTETTER FIELD SALES ASSOCIATE-C Work Phone: [facility].; [facility] 04-27-2011 pneumococcal Conjuga te, unspecified formulation MARILYNN HOFSTETTER FIELD SALES ASSOCIATE-C Work Phone: [facility].; [facility] 04-27-2011 pneumococcal polysaccharide vaccine, 23 valent MARILYNN HOFSTETTER FIELD SALES ASSOCIATE-C Work Phone: [facility]; [facility] 04-27-2011 MARILYNN HOFSTET TER FIELD SALES ASSOCIATE-C Work Phone: [facility].; [facility] 02-10-2011 influenza, seasonal, injectable MARILYNN HOFSTETTER FIELD SALES ASSOCIATE-C Work Phone: [facility].; [facility] 04-21-2010 influenza, seasonal, injectable MARILYNN HOFSTETTER FIELD SALES ASSOCIATE-C Work Phone: [facility].; [facility] 04-21-2010 MARILYNN HOFSTET TER FIELD SALES ASSOCIATE-C Work Phone: [facility].; [facility] 04-05-2008 tetanus toxoid, redu jie diphtheria toxoid, and acellular pertussis vaccine, adsorbed MARILYNN HOFSTETTER FIELD SALES ASSOCIATE-C Work Phone: [facility].; [facility] 03-06-2005 pneumococcal polysaccharide vaccine, 23 valent MARILYNN Company CubedFSTETTER FIELD SALES ASSOCIATE-C Work Phone: [facility].; [facility] pneumococcal Conjuga te, unspecified formulation MARILYNN HOFSTETTER FIELD SALES ASSOCIATE-C Work Phone: [facility].; [facility] Payers Date Payer Category Payer Unknown [id number] 1945 Unknown [id number] 1945 Unknown [id number] Unknown [id number] Unknown Social History Date Type Detail Facility No Alcohol Use. [facility] Retired. [facility].; [facility], [facility]. [facility], [employer]. . [facility], [facility]. [facility] smoker. [facility] [employer]. Summary Purpose Family History Brother (s) Status:Active Comments:In [employer]. x1HTN, hypercholesterol, DM II, CAD Daughter (s) Status:Active Comments:1. In babberly. HTN Father Status:Active Comments: d. 79 yo, [place] Mother Status:Active Comments: d. 46 yo, HTN, CVA Son (s) Status:Active Comments:1. In [place]. HTN Brother (s) Status:Active Comments:In [facility] [employer]. x1HTN, hypercholesterol, DM II, CAD Daughter (s) Status:Active Comments:1. In [place]. HTN Father Status:Active Comments: d. 79 yo, [place] Mother Status:Active Comments: d. 46 yo, HTN, CVA Son (s) Status:Active Comments:1. In babber[place]. HTN Advance Directives No Advanced Directives Records FoundNo Advanced Directives Records FoundNo Advanced Directives Records FoundNo Advanced Directives Records FoundNo Advanced Directives Records Found Additional Source Comments INFORMATION SOURCE (unrecogn ized section and content) DATE CREATED AUTHOR AUTHOR'S ORGANIZ ATION 11/21/2017 [facility] DATE CREATED AUTHOR AUTHOR'S ORGANIZ ATION 03/30/2021 [facility] DATE CREATED AUTHOR AUTHOR'S ORGANIZ ATION 01/13/2022 [facility] ([place]) DATE CREATED AUTHOR AUTHOR'S ORGANRYAN ATION 04/03/2023 [facility] FOR RECORDS PERTAINING TO PATIENTS WHO ARE OR HAVE BEEN ENROLLED IN A CHEMICAL DEPENDENCY/SUBSTANCEABUSE PROGRAM, SOME INFORMATION MAY BE OMITTED. This clinical summary was aggregated from multiple sources. Caution should be exercised in using it in the provision of clinical care. This summary normalizes information from multiple sources, and as a consequence, information in this document may materially change the coding, format and clinical context of patient data. In addition, data may be omitted in some cases. CLINICAL DECISIONS SHOULD BE BASED ON THE PRIMARY CLINICAL RECORDS. [facility] [employer] [facility]. provides no warranty or guarantee of the accuracy or completeness of information in this document.
== END | disposition home or self-care (01) ==
PROVIDERS: PCP Nurse Practitioner Family; Referring Provider Dermatology Pediatric Dermatology; Visit Provider Dermatology Pediatric Dermatology
DX: D48.5 Neoplasm of uncertain behavior of skin (principal)
CPT/HCPCS: 70260